=== PATIENT | female | born 1965 | race African-American/Black ===

== ENCOUNTER → 2016-04-21 | Outpatient (CLI) | payer OTHER ==
--- NOTE | 2016-04-21 16:31 | WOMENS IMAGING REPORT ---
EXAM DESCRIPTION: BILAT SCREENING MAMMO W/CAD COMPLETED DATE/TIME: 04/21/2016 12:20 pm REASON FOR STUDY: Z12.31, ROUTINE SCREENING MAMMO Z12.31 ENCNTR SCREEN MAMMOGRAM FOR MALIGNANT NEOP LASM OF ABDIAZIZ COMPARISON: 2009 to 2015 TECHNIQUE: Standard craniocaudal and mediolateral oblique views of each breast recorded using [employer] l acquisition. LIMITATIONS: None. FINDINGS: No masses, calcifications or architectural distortion. No areas of suspicion. Read with the assistance of CAD. .[facility] - R2 Cenova Version 1.3 .[facility] - R2 Cenova Version 1.3 .[facility] Imaging - R2 Cenova Version 2.4 .[facility] - R2 Cenova Version 2.4 .[facility] - R2 Rug Receiving Clerk Version 9.2 BREAST DENSITY: c. The breasts are heterogeneously dense, which may obscure small masses. BIRAD: 1 NEGATIVE RECOMMENDATION: ROUTINE SCREENING COMMENT: PATIENT NOTIFIED BY LETTER. The [employer] recommends an annual screening mammogram for women aged 40 years or over. Each patient will receive a reminder prior to the anniversary date of her mammogram. The [employer] (ACR) has developed recommendations for screening MRI of the breast s in certain patient populations, to be used in conjunction with mammography. Breast MRI surveillanc e may be appropriate for women with more than 20% lifetime risk of developing breast cancer as deter mined by genetic testing, significant family history of the disease, or history of mantle radiation f or Hodgkins Disease. ACR Practice Guidelines 2008. TECHNICAL DOCUMENTATION: FINDING NUMBER: (1) ASSESSMENT: (1) JOB ID: [id number] [employer]- All Rights Reserved
== END ==
LOC: EDSTATUS 11:51 → WI 11:55
PROVIDERS: ATTEND Physician Assistant
DX: Z12.31 Encounter for screening mammogram for malignant neoplasm of breast (principal)
CPT/HCPCS: 77067; G0202

== ENCOUNTER → 2016-07-07 | Outpatient (CLI) | payer OTHER | LOC: OD 11:50 | PROVIDERS: ATTEND Physician Assistant | DX: M25.531 Pain in right wrist (principal) ==

== ENCOUNTER 2016-08-01 09:50 | Emergency (ER) | payer OTHER ==
--- NOTE | 2016-08-01 10:53 | ER Document Report ---
ED GI/ - General Chief Complaint: Low Back Pain Stated Complaint: LOWER BACK PAIN Time Seen by Provider: 08/01/16 10:15 Mode of Arrival: Ambulatory Information source: Patient Notes: 51-year-old female presents to ED for complain of bilateral lower back pain 2 worse in the flank. She states she has urgency frequency and pressure with urination. Patient has a history of blood pressure cholesterol prediabetic and anxiety. She also has a history of a renal cyst on the right. TRAVEL OUTSIDE OF THE [place] IN LAST 30 DAYS: No - HPI Patient complains to provider of: Flank pain, Other - Urinary frequency urgency and pressure Onset: Other - 2 days Timing/Duration: Gradual Quality of pain: Pressure Severity at maximum: Moderate Severity in ED: Moderate Pain Level: 4 Location: Left flank, Right flank Vaginal bleeding (Compared to normal period): None Menstrual period history: Post-menopausal Associated symptoms: Urinary frequency, Urinary urgency Exacerbated by: Movement Relieved by: Denies Similar symptoms previously: Yes Recently seen / treated by doctor: No - Related Data Allergies/Adverse Reactions: No Known Allergies Allergy (Verified 01/15/14 08:42) Past Medical History - General Information source: Patient - Social History Smoking Status: Current Every Day Smoker Cigarette use (# per day): Yes - half pack a day Chew tobacco use (# tins/day): No Smoking Education Provided: Yes - less than 2 minutes Frequency of alcohol use: Social Drug Abuse: None Occupation: home health Lives with: Family Family History: Reviewed & Not Pertinent Patient has suicidal ideation: No Patient has homicidal ideation: No - Past Medical History Cardiac Medical History: Reports: Hx Hypercholesterolemia, Hx Hypertension - on meds Pulmonary Medical History: Reports: None EENT Medical History: Reports: None Neurological Medical History: Reports: None Endocrine Medical History: Reports: Hx Diabetes Mellitus Type 2 - Prediabetic Renal/ Medical History: Reports: Hx Ectopic Malignancy Medical History: Reports: None GI Medical History: Reports: Hx Gastroesophageal Reflux Disease Musculoskeltal Medical History: Reports Hx Arthritis - BACK/SHOULDER AT TIMES Skin Medical History: Reports None Psychiatric Medical History: Reports: Hx Anxiety Traumatic Medical History: Reports: None Infectious Medical History: Denies: Hx Hepatitis Past Surgical History: Reports: Hx Cholecystectomy, Hx Dilation and Curettage, Hx Gynecologic Surgery - Removal of ectopic , Hx Tubal Ligation, Other - We will of a groin cyst - Immunizations Hx Diphtheria, Pertussis, Tetanus Vaccination: Yes Hx Pneumococcal Vaccination: 12/30/12 Review of Systems - Review of Systems Constitutional: No symptoms reported EENT: No symptoms reported Cardiovascular: No symptoms reported Respiratory: No symptoms reported Gastrointestinal: No symptoms reported Genitourinary: Frequency, Flank pain, Urgency, Other - Pressure Female Genitourinary: No symptoms reported Musculoskeletal: No symptoms reported Skin: No symptoms reported Hematologic/Lymphatic: No symptoms reported Neurological/Psychological: No symptoms reported Physical Exam - Vital signs Vitals: Temp Pulse Resp BP Pulse Ox 98.8 F 93 15 128/81 H 100 08/01/16 09:52 08/01/16 09:52 08/01/16 09:52 08/01/16 09:52 08/01/16 09:52 Interpretation: Normal - General General appearance: Appears well, Alert - HEENT Head: Normocephalic, Atraumatic Eyes: Normal Pupils: PERRL - Respiratory Respiratory status: No respiratory distress Chest status: Nontender Breath sounds: Normal Chest palpation: Normal - Cardiovascular Rhythm: Regular Heart sounds: Normal auscultation Murmur: No - Abdominal Inspection: Normal Distension: No distension Bowel sounds: Normal Tenderness: Nontender Organomegaly: No organomegaly - Back Back: Normal, Nontender - Extremities General upper extremity: Normal inspection, Nontender, Normal color, Normal ROM , Normal temperature General lower extremity: Normal inspection, Nontender, Normal color, Normal ROM , Normal temperature, Normal weight bearing. No: Lesli's sign - Neurological Neuro grossly intact: Yes Cognition: Normal Orientation: AAOx4 Stas Coma Scale Eye Opening: Spontaneous [employer] Coma Scale Verbal: Oriented Stas Coma Scale Motor: Obeys Commands Stas Coma Scale Total: 15 Speech: Normal Motor strength normal: LUE, RUE, LLE, RLE Sensory: Normal - Psychological Associated symptoms: Normal affect, Normal mood - Skin Skin Temperature: Warm Skin Moisture: Dry Skin Color: Normal Course - Vital Signs Vital signs: Temp Pulse Resp BP Pulse Ox 98.8 F 93 15 128/81 H 100 08/01/16 09:52 08/01/16 09:52 08/01/16 09:52 08/01/16 09:52 08/01/16 09:52 - Laboratory Laboratory results interpreted by me: 08/01/16 10:43 Urine Glucose (UA) >=500 H Urine Blood MODERATE H Discharge - Discharge Clinical Impression: Flank pain UTI (urinary tract infection) Qualifiers: Urinary tract infection type: site unspecified Hematuria presence: with hematuria Qualified Code(s): N39.0 - Urinary tract infection, site not specified Condition: Stable Disposition: HOME, SELF-CARE Instructions: Use of Vauq-Ryd-Ilqesxk Ibuprofen ([facility]) Additional Instructions: Flank Pain We weren't able to prove an exact cause for your flank pain. Pain in the flank can be caused by a muscle strain or spasm. Sometimes a kidney stone causes pain, but can't be found on our tests. Infection in the kidney should be evident on a urine test. Early shingles can occasionally cause flank pain, without the rash that proves the diagnosis. On rare occasions, disease of the pancreas, aorta, spleen, or colon can create pain in the flank. At this time, there's no evidence of a dangerous condition, and it seems safe for you to be at home. If the pain goes away and does not come back, no further testing will be needed. If pain persists, or becomes more severe, we may need to repeat some tests or order additional new testing. Blood in the urine, urgency to urinate frequently, and pain that radiates to the groin can indicate a kidney stone. Fever may mean that the pain is due to infection, either of the kidney or the colon (diverticulitis). If your pain is early shingles, you should develop an eruption of blisters in the painful area within a few days. Call the doctor or return if you have pain that is spreading or becoming more severe, pain that does not resolve with time, fever, or any other new symptoms. URINARY TRACT INFECTION: Your evaluation indicates that you have a urinary tract infection. This is due to germs growing in the bladder. This is a common problem. This infection usually responds quickly to antibiotics. Your antibiotic should be taken exactly as prescribed. Drink plenty of fluids -- three to four quarts a day. Occasionally, a bladder anesthetic will be prescribed to help stop the feeling of urgency until the antibiotic has a chance to clear the infection. This may cause your urine to be dark orange. Certain urine infections require a culture. If the doctor obtained a culture, the results will be back in two days. You should call to see if a change in treatment is needed. A repeat urinalysis after you finish treatment is often recommended. The physician will let you know if further testing is required. Call the doctor if you develop fever, chills, flank pain, inability to urinate, or blood in the urine. TRIMETHOPRIM-SULFA: You have been given a prescription for trimethoprim-sulfa (TMS, Septra, Bactrim). This is a combination antibiotic of the sulfa class, often used for urinary tract infections, middle ear infections, bronchitis, shigella intestinal infection, and Pneumocystis pneumonia. TMS is usually well-tolerated. Occasional side effects include nausea and decreased appetite. Septra is not recommended for infants less than two months of age. Do not take this medication if you have experienced severe side effects or allergy to sulfa medicine. You should stop this medicine at once and contact your physician if you develop any rash, joint pain, shortness of breath, bruising, or jaundice ( yellow color in the skin), or if you develop any other new or unusual symptoms. FOLLOW-UP CARE: If you have been referred to a physician for follow-up care, call the physician s office for an appointment as you were instructed or within the next two days. If you experience worsening or a significant change in your symptoms, notify the physician immediately or return to the Emergency Department at any time for re-evaluation. Prescriptions: Sulfamethoxazole/Trimethoprim [Bactrim Ds Tablet] 1 each PO BID #14 tablet Forms: Elevated Blood Pressure, Smoking Cessation Education, Return to Work Referrals: LEXA LOVE MD [Primary Care Provider] - Follow up as needed
[2016-08-01 11:10] LABS: APPEARANCE,URINE SLIGHTLY-CLOUDY; BILIRUBIN,URINE NEGATIVE (NEGATIVE); GLUCOSE, URINE >=500 mg/dL (NEGATIVE); KETONES,URINE NEGATIVE (NEGATIVE); LEUKOCYTE ESTERASE,URINE NEGATIVE (NEGATIVE); NITRITE,URINE NEGATIVE (NEGATIVE); PROTEIN,URINE NEGATIVE (NEGATIVE); URINE SPECIFIC GRAVITY 1.013; UROBILINOGEN,URINE NEGATIVE mg/dL (<2.0)
[2016-08-01] MEDS ORDERED: SULFAMETHOXAZOLE/TRIMETHOPRIM 800-160 MG TABLET PO ONE (12:29)
[2016-08-01 15:37] VITALS: BP 108/62
== END 2016-08-01 12:45 | disposition home or self-care (01) ==
LOC: ER 09:50
DX: N39.0 Urinary tract infection, site not specified (principal); R31.9 Hematuria, unspecified; M54.5 Low back pain; R35.0 Frequency of micturition; R39.15 Urgency of urination; I10 Essential (primary) hypertension; F17.210 Nicotine dependence, cigarettes, uncomplicated; Z71.6 Tobacco abuse counseling
CPT/HCPCS: 81001; 82962; 87086; 99283

== ENCOUNTER → 2016-08-05 | Outpatient (CLI) | payer OTHER | LOC: RAD 11:41 | PROVIDERS: ATTEND Family Medicine | DX: M54.9 Dorsalgia, unspecified (principal); M48.06 Spinal stenosis, lumbar region | CPT/HCPCS: 72148 ==

== ENCOUNTER → 2017-01-28 | Outpatient (CLI) | payer OTHER ==
[2017-01-28 14:57] LABS: ABSOLUTE BASOPHILS # (AUTO) 0.1 10^3/uL (0.0-0.2); ABSOLUTE EOSINOPHILS # (AUTO) 0.1 10^3/uL (0.0-0.6); ABSOLUTE LYMPHOCYTES (AUTO) 4.1 10^3/uL (0.5-4.7); ABSOLUTE MONOCYTES (AUTO) 0.7 10^3/uL (0.1-1.4); ABSOLUTE NEUT (AUTO) 3.6 10^3/uL (1.7-8.2); EOSINOPHILS % (AUTO) 0.9 % (0-6); HEMATOCRIT 44.5 % (36.0-47.0); HEMOGLOBIN 15.2 g/dL (12.0-15.5); HGB HCT DIFFERENCE 1.1; LYMPHOCYTES % (AUTO) 47.9 % (13-45); MEAN CORPUSCULAR HEMOGLOBIN 30.6 pg (27.0-33.4); MEAN CORPUSCULAR HGB CONC 34.2 g/dL (32.0-36.0); MEAN CORPUSCULAR VOLUME 89 fl (80-97); MONOCYTES % (AUTO) 7.9 % (3-13); RED BLOOD COUNT 4.98 10^6/uL (3.72-5.28); RED CELL DISTRIBUTION WIDTH 14.2 % (11.5-14.0); SEGMENTED NEUTROPHILS % (AUTO) 42.3 % (42-78); WHITE BLOOD COUNT 8.6 10^3/uL (4.0-10.5)
[2017-01-28 15:30] LABS: ALANINE AMINOTRANSFERASE 20 U/L (9-52); ALBUMIN 4.7 g/dL (3.5-5.0); ALKALINE PHOSPHATASE 74 U/L (38-126); ANION GAP 15 (5-19); ASPARTATE AMINO TRANSFERASE 22 U/L (14-36); BILIRUBIN,DIRECT 0.4 mg/dL (0.0-0.4); BILIRUBIN,TOTAL 0.4 mg/dL (0.2-1.3); BLOOD UREA NITROGEN 16 mg/dL (7-20); CALCIUM 9.9 mg/dL (8.4-10.2); CARBON DIOXIDE 23 mmol/L (22-30); CHLORIDE 104 mmol/L (98-107); CREATININE RESULT 0.78 mg/dL (0.52-1.25); GLUCOSE 89 mg/dL (75-110); POTASSIUM 4.2 mmol/L (3.6-5.0); SODIUM 141.6 mmol/L (137-145); TOTAL PROTEIN 7.8 g/dL (6.3-8.2)
== END ==
LOC: OD 13:22
PROVIDERS: ATTEND Specialist
DX: R10.9 Unspecified abdominal pain (principal)
CPT/HCPCS: 36415; 80053; 85025

== ENCOUNTER 2017-02-24 08:25 | Day surgery (SDC) | payer OTHER ==
--- NOTE | 2017-02-22 14:46 | HISTORY AND PHYSICAL E ---
History and Physical NAME: CUBA CHRISTIANSON : 1965 AGE: 51Y ADMITTED: 02/24/2017 ROOM: The patient has history of gastritis. Presented 02/08/2014. There was rapid transit of barium through small bowel. She did have large diverticula in the second and third portion of the duodenum, multiple diverticula in the terminal ileum, cecum. Few diverticula were seen in the mid transverse colon. PAST MEDICAL HISTORY: The patient has small bowel fissures, diverticulosis. She did have cholecystectomy. Ultrasound shows the following. Her uterus has nodular appearance which may indicate intramural fibroid. She does have some collection of debris, left posterior margin of the uterine. She had degenerative uterine fibroid. Difficulty with visualization of the vagina on ultrasound. She needed endovaginal ultrasound for further evaluation. CEA is 5, elevated CEA. Upper scope shows gastritis and diverticulum in the duodenum. She did have hyperplastic polyp in her rectum, diverticulosis. The patient has reflux, abdominal pain. Plan is for upper endoscopy. The patient is being followed by the following. The patient does have hypertension. She sees TANGELA Morfin. The patient presented at this time for upper endoscopy. She is being seen by Dr. Genny Ledesma. EXAM: Alert, oriented. Temperature is 97, blood pressure 110/70, height 61 inches, weight 111 pounds. HEAD, EYES, EARS, NOSE AND THROAT: Normal. Abdomen soft. Heart normal sounds. Lungs are clear. Abdomen soft. CONCLUSION: Abdominal pain, diverticulum. MEDICATIONS: 1. Nexium. Dictation ends here DICTATING PHYSICIAN: TIKI GALICIA M.D. [id number] PHY#: [id number] ID: [id number] JOB#: [id number] ACCT: [id number] cc:TIKI GALICIA M.D. >
--- NOTE | 2017-02-23 11:13 | HISTORY AND PHYSICAL E ---
History and Physical NAME: CUBA CHRISTIANSON : 1965 AGE: 51Y ADMITTED: 02/24/2017 ROOM: REASON FOR ADMISSION: Upper endoscopy. CHIEF COMPLAINT: Reflux, abdominal pain. HISTORY OF PRESENT ILLNESS: The patient presented at this time regarding upper endoscopy. She did have diverticulum of the duodenum. PAST MEDICAL HISTORY: 1. Diverticulum. 2. Hyperplastic polyp. 3. Hyperlipidemia. 4. Hypertension. 5. Acute lymphadenitis. 6. Chronic gastritis; negative Helicobacter pylori. 7. Constipation. 8. Reflux. SURGERIES: Cholecystectomy. MEDICATIONS: 1. Nexium. 2. Micardis. 3. Aspirin. SOCIAL HISTORY: . Smokes. Drinks rarely. FAMILY HISTORY: Mom has esophageal disease, reflux. Her dad had CA of the prostate. Mom had CA of the esophagus. REVIEW OF SYSTEMS: CARDIAC: Hypertension, high cholesterol, tachyarrhythmias. GASTROINTESTINAL: Constipation. PHYSICAL EXAMINATION: GENERAL: Pleasant, alert, oriented. VITAL SIGNS: Temp is 98, blood pressure 130/80, afebrile. HEAD, EYES, EARS, NOSE, THROAT: Normal. ABDOMEN: Soft. NEUROLOGIC: Negative. LABORATORY DATA: She does have hemoglobin 13, hematocrit 39. PLAN: The patient is scheduled for upper endoscopy on 02/24. The patient is being seen by Dr. Ledesma and Nikki Hooper. DICTATING PHYSICIAN: TIKI GALICIA M.D. [id number] PHY#: [id number] ID: [id number] JOB#: [id number] ACCT: [id number] cc:TIKI GALICIA M.D. >
[2017-02-24] MEDS ORDERED: NALOXONE HCL INJ/PF 0.4 MG/1 ML SDV ONE (09:00)
[2017-02-24] MEDS ORDERED: GLYCOPYRROLATE INJ 0.4 MG/2 ML VIAL ONE (09:00)
[2017-02-24] MEDS ORDERED: ONDANSETRON HCL INJ/PF 4 MG/2 ML SDV ONE (09:00)
[2017-02-24] MEDS ORDERED: FENTANYL CITRATE INJ/PF 100 MCG/2 ML AMPUL ONE (09:01)
[2017-02-24] MEDS ORDERED: FLUMAZENIL INJ 0.5 MG/5 ML VIAL ONE (09:01)
[2017-02-24] MEDS ORDERED: MIDAZOLAM 2 MG/2 ML INJ ONE (09:01)
[2017-02-24] MEDS ORDERED: EPINEPHRINE INJ 1 MG/10 ML DISP.SYRIN ONE (09:01)
[2017-02-24] MEDS: MIDAZOLAM 2 MG/2 ML INJ ONE ×3 (09:24→09:30)
[2017-02-24] MEDS: FENTANYL CITRATE INJ/PF 100 MCG/2 ML AMPUL ONE ×2 (09:26→09:32)
[2017-02-24 10:56] LABS: ALANINE AMINOTRANSFERASE 27 U/L (9-52); ALBUMIN 3.9 g/dL (3.5-5.0); ALKALINE PHOSPHATASE 55 U/L (38-126); AMYLASE 78 U/L (30-110); ANION GAP 10 (5-19); ASPARTATE AMINO TRANSFERASE 17 U/L (14-36); BILIRUBIN,DIRECT 0.4 mg/dL (0.0-0.4); BILIRUBIN,TOTAL 0.5 mg/dL (0.2-1.3); BLOOD UREA NITROGEN 16 mg/dL (7-20); CALCIUM 9.2 mg/dL (8.4-10.2); CARBON DIOXIDE 24 mmol/L (22-30); CHLORIDE 104 mmol/L (98-107); CREATININE RESULT 0.68 mg/dL (0.52-1.25); GLUCOSE 125 mg/dL (75-110); LIPASE 242.7 U/L (23-300); POTASSIUM 3.9 mmol/L (3.6-5.0); TOTAL PROTEIN 6.6 g/dL (6.3-8.2)
[2017-02-24 10:59] VITALS: BP 127/82
[2017-02-24 11:27] LABS: CARCINOEMBRYONIC ANTIGEN 4.4 ng/mL (<3.0)
[2017-02-24 11:47] LABS: ABSOLUTE BASOPHILS # (AUTO) 0.1 10^3/uL (0.0-0.2); ABSOLUTE EOSINOPHILS # (AUTO) 0.1 10^3/uL (0.0-0.6); ABSOLUTE LYMPHOCYTES (AUTO) 3.1 10^3/uL (0.5-4.7); ABSOLUTE MONOCYTES (AUTO) 0.8 10^3/uL (0.1-1.4); ABSOLUTE NEUT (AUTO) 4.7 10^3/uL (1.7-8.2); BASOPHILS % (AUTO) 0.7 % (0-2); EOSINOPHILS % (AUTO) 0.6 % (0-6); HEMATOCRIT 41.6 % (36.0-47.0); HEMOGLOBIN 14.4 g/dL (12.0-15.5); HGB HCT DIFFERENCE 1.6; LYMPHOCYTES % (AUTO) 36.3 % (13-45); MEAN CORPUSCULAR HEMOGLOBIN 30.5 pg (27.0-33.4); MEAN CORPUSCULAR HGB CONC 34.6 g/dL (32.0-36.0); MEAN CORPUSCULAR VOLUME 88 fl (80-97); MONOCYTES % (AUTO) 8.7 % (3-13); RED BLOOD COUNT 4.71 10^6/uL (3.72-5.28); RED CELL DISTRIBUTION WIDTH 14.4 % (11.5-14.0); SEGMENTED NEUTROPHILS % (AUTO) 53.7 % (42-78); WHITE BLOOD COUNT 8.7 10^3/uL (4.0-10.5)
--- NOTE | 2017-02-24 14:25 | DISCHARGE SUMMARY E ---
Discharge Summary NAME: CUBA CHRISTIANSON : 1965 AGE: 51Y ADMITTED: 02/24/2017 DISCHARGED: 02/24/2017 HOSPITAL COURSE: The patient is a 51-year-old female presented with abdominal pain. Today's upper endoscopy shows no ulcers. No malignancy. Deformity in the duodenal bulb. Descending duodenum with nodularity and hyperplastic benign looking polyps and mild esophagitis, mild gastritis. DISCHARGE PLAN: Lab studies. Consider a small bowel series. Awaiting lab studies. Consider a small bowel series with detailed evaluation of contrast, small bowel series for further evaluation of the duodenum. Consider followup upper endoscopy for further evaluation and biopsy to be done in the OR with anesthesia standby. Conscious sedation was difficult. FINAL DIAGNOSES: Deformity in duodenal bulb, duodenitis, abdominal pain. DICTATING PHYSICIAN: TIKI GALICIA M.D. [id number] PHY#: [id number] ID: [id number] JOB#: [id number] ACCT: [id number] cc:TIKI GALICIA M.D., SWETANG M.D. >
--- NOTE | 2017-02-24 14:26 | OPERATIVE REPORT E ---
Operative Report NAME: CUBA CHRISTIANSON : 1965 AGE: 51Y DATE OF SURGERY: 02/24/2017 ROOM: PREOPERATIVE DIAGNOSES: Abdominal pain and reflux. POSTOPERATIVE DIAGNOSES: Patient does have moderate duodenitis, multiple hyperplastic benign looking sessile polyps in the duodenum. PROCEDURE: 1. Esophagoscopy. 2. Gastroscopy. 3. Duodenoscopy. SURGEON: TIKI GALICIA M.D. ANESTHESIA: Patient had 4 Versed and 50 fentanyl. Difficult to sedate. Next endoscopy, she needs to be done in the OR with propofol. TISSUE REMOVED OR ALTERED: None. DESCRIPTION OF PROCEDURE: Baby scope passed under guided vision. No difficulties. Esophagoscopy junction at 40. Mild esophagitis. Gastroscopy: Mild gastritis. Duodenoscopy: Some deformity in the duodenal bulb and descending duodenum with multiple nodularity and hyperplastic benign looking polyps. CONCLUSION: Duodenitis with some deformity in the duodenal bulb and mild esophagitis and mild duodenitis. PLAN: We will consider small bowel series to include the duodenal bulb. We will obtain a CA19-9 to rule out pancreatic lesion, CEA and CBC. DICTATING PHYSICIAN: TIKI GALICIA M.D. [id number] PHY#: [id number] ID: [id number] JOB#: [id number] ACCT: [id number] cc:TIKI GALICIA M.D., SWETANG M.D. >
== END 2017-02-24 11:08 | disposition home or self-care (01) ==
LOC: END 08:25
PROVIDERS: ATTEND Specialist
PROC: 0DJ08ZZ Inspection of Upper Intestinal Tract, Via Natural or Artificial Opening Endoscopic (ICD-10-PCS; principal; 2017-02-24 09:00)
DX: K29.80 Duodenitis without bleeding (principal); K31.7 Polyp of stomach and duodenum; K29.70 Gastritis, unspecified, without bleeding; K20.9 Esophagitis, unspecified; I10 Essential (primary) hypertension; E78.5 Hyperlipidemia, unspecified; K21.9 Gastro-esophageal reflux disease without esophagitis; Z79.82 Long term (current) use of aspirin; Z79.899 Other long term (current) drug therapy; Z90.49 Acquired absence of other specified parts of digestive tract; F17.200 Nicotine dependence, unspecified, uncomplicated
CPT/HCPCS: 43235; 36415; 86301; 82962; 82150; 82378; 82941; 83690; 85025; 80053; J2250; J3010; J2405; J0171; J2310; J3490

== ENCOUNTER → 2017-03-29 | Outpatient (CLI) | payer OTHER ==
--- NOTE | 2017-03-29 15:08 | RADIOLOGY REPORT (SQ) ---
EXAM DESCRIPTION: CT CHEST WITH COMPLETED DATE/TIME: 03/29/2017 11:11 am REASON FOR STUDY: COUGH (R05), WHEEZING (R06.2) R05 COUGH R06.2 WHEEZING COMPARISON: Two-view chest 04/29/2014 TECHNIQUE: CT scan of the chest performed using helical scanning technique with dynamic intravenous contrast injection. Images reviewed with lung, soft tissue and bone windows. Reconstructed coronal and sagittal MPR images reviewed. All images stored on PACS. All CT scanners at this facility use dose modulation, iterative reconstruction, and/or weight based d osing when appropriate to reduce radiation dose to as low as reasonably achievable (ALARA). [facility]: Dose Right [facility]: CareDose [facility]: Dose Right [facility]: Teradose 4D [facility]: its learning CONTRAST TYPE AND DOSE: contrast/concentration: Isovue 370.00 mg/ml; Total Contrast Delivered: 80.0 ml; Total Saline Delivered: 55.0 ml RENAL FUNCTION: Creatinine 0.88 RADIATION DOSE: CT Rad equipment meets quality standard of care and radiation dose reduction techniq ues were employed. CTDIvol: 4.0 mGy. DLP: 150 mGy-cm. . LIMITATIONS: None. FINDINGS: LUNGS AND PLEURA: No opacities, nodules, masses. No pneumothorax. No effusions. HILAR AND MEDIASTINAL STRUCTURES: No identified masses or abnormal nodes. HEART AND VASCULAR STRUCTURES: No aneurysm or dissection. No central pulmonary emboli. No pericardi al effusion. HARDWARE: None in the chest. UPPER ABDOMEN: Post cholecystectomy. Right upper pole renal cortical thinning, likely from remote pr ior infection THYROID AND OTHER SOFT TISSUES: No masses. No adenopathy. BONES: No significant finding. OTHER: No other significant finding. IMPRESSION: NORMAL CT OF THE CHEST WITH IV CONTRAST. TECHNICAL DOCUMENTATION: JOB ID: [id number] Quality ID # [id number]: Final reports with documentation of one or more dose reduction techniques (e.g., Au tomated exposure control, adjustment of the mA and/or kV according to patient size, use of iterative reconstruction technique) 2010 [employer]- All Rights Reserved
== END ==
LOC: RAD 10:21
PROVIDERS: ATTEND Physician Assistant
DX: R05 Cough (principal); R06.2 Wheezing
CPT/HCPCS: 71260

== ENCOUNTER → 2017-05-25 | Outpatient (CLI) | payer OTHER ==
--- NOTE | 2017-05-25 15:56 | WOMENS IMAGING REPORT ---
EXAM DESCRIPTION: BILAT SCREENING MAMMO W/CAD COMPLETED DATE/TIME: 05/25/2017 2:37 pm REASON FOR STUDY: ROUTINE BILATERAL SCREENING;Z12.31 Z12.31 ENCNTR SCREEN MAMMOGRAM FOR MALIGNANT N EOPLASM OF ABDIAZIZ COMPARISON: 04/21/2016 and 04/10/2015. TECHNIQUE: Standard craniocaudal and mediolateral oblique views of each breast recorded using [employer]ita l acquisition. LIMITATIONS: None. FINDINGS: No masses, calcifications or architectural distortion. No areas of suspicion. Read with the assistance of CAD. .[facility] - R2 Cenova Version 1.3 .[facility] Imaging - R2 Cenova Version 1.3 .[facility] - R2 Cenova Version 2.4 .[facility] - R2 Cenova Version 2.4 .[facility] - R2 Attending Urologist Version 9.2 IMPRESSION: NORMAL MAMMOGRAM. BIRADS 1. BREAST DENSITY: c. The breasts are heterogeneously dense, which may obscure small masses. BIRAD: 1 NEGATIVE RECOMMENDATION: ROUTINE SCREENING COMMENT: The patient has been notified of the results by letter per SA requirements. Additional no tification policies are in place for contacting patient with suspicious or incomplete findings. Quality ID #[id number]: The [place] [employer] recommends an annual screening mammogram for women aged 40 years or over. This facility utilizes a reminder system to ensure that all patients receive reminder letters, and/or direct phone calls for appointments. This includes reminders for routine scr eening mammograms, diagnostic mammograms, or other Breast Imaging Interventions when appropriate. Th is patient will be placed in the appropriate reminder system. The [place] [employer] (ACR) has developed recommendations for screening MRI of the breast s in certain patient populations, to be used in conjunction with mammography. Breast MRI surveillanc e may be appropriate for women with more than 20% lifetime risk of developing breast cancer as deter mined by genetic testing, significant family history of the disease, or history of mantle radiation f or Hodgkins Disease. ACR Practice Guidelines 2008. TECHNICAL DOCUMENTATION: FINDING NUMBER: (1) ASSESSMENT: (1) JOB ID: [id number] [employer]- All Rights Reserved Reading location - IP/workstation name: [facility]
== END ==
LOC: WI 14:18
PROVIDERS: ATTEND Physician Assistant
DX: Z12.31 Encounter for screening mammogram for malignant neoplasm of breast (principal)
CPT/HCPCS: 77067

== ENCOUNTER 2017-07-19 20:10 | Emergency (ER) | payer OTHER ==
[2017-07-19 20:37] VITALS: BP 155/82
[2017-07-19] MEDS ORDERED: ASPIRIN 81 MG TABLET, CHEWABLE PO ONE (20:43)
[2017-07-19] MEDS ORDERED: NITROGLYCERIN 0.4 MG/TAB 25 TAB/BOTTLE SL PRN (20:51)
--- NOTE | 2017-07-19 20:51 | ER Document Report ---
ED Medical Screen (RME) - General Chief Complaint: Chest Pain Stated Complaint: CHEST TIGHTNESS,BLOOD PRESSURE PROBLEM Time Seen by Provider: 07/19/17 20:47 Notes: 52-year-old female who presents with intermittent left-sided chest pressure is not associated with movement or exertion. Patient of Dr. Dang Shortness of breath or vomiting. PE: NAD. RRR. Lungs CTAB. I have greeted and performed a rapid initial assessment of this patient. A comprehensive ED assessment and evaluation of the patient, analysis of test results and completion of the medical decision making process will be conducted by additional ED providers. TRAVEL OUTSIDE OF THE [place] IN LAST 30 DAYS: No - Related Data Allergies/Adverse Reactions: No Known Allergies Allergy (Verified 07/19/17 20:23) Past Medical History - Social History Chew tobacco use (# tins/day): No Frequency of alcohol use: None Drug Abuse: None - Past Medical History Cardiac Medical History: Reports: Hx Coronary Artery Disease - HIGH CHOLESTEROL , Hx Hypercholesterolemia, Hx Hypertension - on meds Denies: Hx Heart Attack Pulmonary Medical History: Denies: Hx Asthma, Hx Bronchitis, Hx COPD, Hx Pneumonia Neurological Medical History: Denies: Hx Cerebrovascular Accident, Hx Seizures Endocrine Medical History: Reports: Hx Diabetes Mellitus Type 2 - Prediabetic Renal/ Medical History: Reports: Hx Ectopic . Denies: Hx Peritoneal Dialysis GI Medical History: Reports: Hx Gastroesophageal Reflux Disease. Denies: Hx Hepatitis, Hx Hiatal Hernia, Hx Ulcer Musculoskeltal Medical History: Reports Hx Arthritis - BACK/BILATERAL SHOULDER AT TIMES Psychiatric Medical History: Reports: Hx Anxiety Infectious Medical History: Denies: Hx Hepatitis Past Surgical History: Reports: Hx Cholecystectomy, Hx Dilation and Curettage, Hx Gynecologic Surgery - Removal of ectopic , Hx Tubal Ligation, Other - We will of a groin cyst. Denies: Hx Hysterectomy, Hx Mastectomy, Hx Open Heart Surgery, Hx Pacemaker - Immunizations Hx Diphtheria, Pertussis, Tetanus Vaccination: Yes Influenza Administration Date for 12/2016 - 05/2017 Season: 12/19/16 Physical Exam - Vital signs Vitals: Temp Pulse Resp BP Pulse Ox 98.3 F 79 18 155/82 H 100 07/19/17 20:34 07/19/17 20:34 07/19/17 20:34 07/19/17 20:34 07/19/17 20:34 Course - Vital Signs Vital signs: Temp Pulse Resp BP Pulse Ox 98.3 F 79 18 155/82 H 100 07/19/17 20:34 07/19/17 20:34 07/19/17 20:34 07/19/17 20:34 07/19/17 20:34
--- NOTE | 2017-07-19 22:04 | RADIOLOGY REPORT (SQ) ---
EXAM DESCRIPTION: CHEST SINGLE VIEW COMPLETED DATE/TIME: 07/19/2017 9:55 pm REASON FOR STUDY: chest pain COMPARISON: 04/29/2014 EXAM PARAMETERS: NUMBER OF VIEWS: One view. TECHNIQUE: Single frontal radiographic view of the chest acquired. RADIATION DOSE: NA LIMITATIONS: None. FINDINGS: LUNGS AND PLEURA: No opacities, masses or pneumothorax. No pleural effusion. MEDIASTINUM AND HILAR STRUCTURES: No masses. Contour normal. HEART AND VASCULAR STRUCTURES: Heart normal in size. Normal vasculature. BONES: No acute findings. HARDWARE: None in the chest. OTHER: No other significant finding. IMPRESSION: NO ACUTE RADIOGRAPHIC FINDING IN THE CHEST. TECHNICAL DOCUMENTATION: JOB ID: [id number] [employer]- All Rights Reserved Reading location - IP/workstation name: [facility]
--- NOTE | 2017-07-19 22:32 | EKG REPORT ---
SEVERITY:- NORMAL ECG - SINUS RHYTHM : Confirmed by: Ana Perry 19-Jul-2017 22:32:08
--- NOTE | 2017-07-27 17:56 | ER Document Report ---
ED General - General Chief Complaint: Chest Pain Stated Complaint: CHEST TIGHTNESS,BLOOD PRESSURE PROBLEM Time Seen by Provider: 07/19/17 20:47 Notes: 52-year-old female who presents with intermittent left-sided chest pressure that is not associated with movement or exertion. Patient of Dr. Dang Denies shortness of breath or vomiting. TRAVEL OUTSIDE OF THE [place] IN LAST 30 DAYS: No - Related Data Allergies/Adverse Reactions: No Known Allergies Allergy (Verified 07/19/17 20:23) Past Medical History - General Information source: Patient - Social History Smoking Status: Current Every Day Smoker Chew tobacco use (# tins/day): No Frequency of alcohol use: None Drug Abuse: None Family History: Reviewed & Not Pertinent Patient has suicidal ideation: No Patient has homicidal ideation: No - Past Medical History Cardiac Medical History: Reports: Hx Coronary Artery Disease - HIGH CHOLESTEROL , Hx Hypercholesterolemia, Hx Hypertension - on meds Denies: Hx Heart Attack Pulmonary Medical History: Denies: Hx Asthma, Hx Bronchitis, Hx COPD, Hx Pneumonia Neurological Medical History: Denies: Hx Cerebrovascular Accident, Hx Seizures Endocrine Medical History: Reports: Hx Diabetes Mellitus Type 2 - Prediabetic Renal/ Medical History: Reports: Hx Ectopic . Denies: Hx Peritoneal Dialysis GI Medical History: Reports: Hx Gastroesophageal Reflux Disease. Denies: Hx Hepatitis, Hx Hiatal Hernia, Hx Ulcer Musculoskeltal Medical History: Reports Hx Arthritis - BACK/BILATERAL SHOULDER AT TIMES Psychiatric Medical History: Reports: Hx Anxiety Infectious Medical History: Denies: Hx Hepatitis Past Surgical History: Reports: Hx Cholecystectomy, Hx Dilation and Curettage, Hx Gynecologic Surgery - Removal of ectopic , Hx Tubal Ligation, Other - We will of a groin cyst. Denies: Hx Hysterectomy, Hx Mastectomy, Hx Open Heart Surgery, Hx Pacemaker - Immunizations Hx Diphtheria, Pertussis, Tetanus Vaccination: Yes Hx Pneumococcal Vaccination: 12/30/12 Review of Systems - Review of Systems Notes: REVIEW OF SYSTEMS: CONSTITUTIONAL: -fevers, -chills EENT: -eye pain, -difficulty swallowing, -nasal congestion CARDIOVASCULAR: +chest pain, -syncope. RESPIRATORY: -cough, -SOB GASTROINTESTINAL: -abdominal pain, -nausea, -vomiting, -diarrhea GENITOURINARY: -dysuria, -hematuria MUSCULOSKELETAL: -back pain, -neck pain SKIN: -rash or skin lesions. HEMATOLOGIC: -easy bruising or bleeding. LYMPHATIC: -swollen, enlarged glands. NEUROLOGICAL: -altered mental status or loss of consciousness, -headache, - neurologic symptoms PSYCHIATRIC: -anxiety, -depression. ALL OTHER SYSTEMS REVIEWED AND NEGATIVE. Physical Exam - Vital signs Vitals: Temp Pulse Resp BP Pulse Ox 98.3 F 79 18 155/82 H 100 07/19/17 20:34 07/19/17 20:34 07/19/17 20:34 07/19/17 20:34 07/19/17 20:34 - Notes Notes: PHYSICAL EXAMINATION: GENERAL: Well-appearing, well-nourished and in no acute distress. HEAD: Atraumatic, normocephalic. EYES: Pupils equal round and reactive to light, extraocular movements intact, sclera anicteric, conjunctiva are normal. ENT: nares patent, oropharynx clear without exudates. Moist mucous membranes. NECK: Normal range of motion, supple without lymphadenopathy LUNGS: Breath sounds clear to auscultation bilaterally and equal. No wheezes rales or rhonchi. HEART: Regular rate and rhythm without murmurs ABDOMEN: Soft, nontender, normoactive bowel sounds. No guarding, no rebound. No masses appreciated. EXTREMITIES: Normal range of motion, no pitting or edema. No cyanosis. NEUROLOGICAL: Cranial nerves grossly intact. Normal speech, normal gait. Normal sensory and motor exams. PSYCH: Normal mood, normal affect. SKIN: Warm, Dry, normal turgor, no rashes or lesions noted. Course - Re-evaluation Re-evalutation: Patient eloped after my evaluation in [facility] She left before the risks of leaving without proper evaluation could be explained to her. She was called multiple times by the RN, who could not locate her. Unsure of her reason for elopement. - Vital Signs Vital signs: Temp Pulse Resp BP Pulse Ox 98.3 F 79 18 155/82 H 100 07/19/17 20:34 07/19/17 20:34 07/19/17 20:34 07/19/17 20:34 07/19/17 20:34 Discharge - Discharge Clinical Impression: Chest pain Qualifiers: Chest pain type: unspecified Qualified Code(s): R07.9 - Chest pain, unspecified Condition: Stable Disposition: ELOPED
== END 2017-07-20 00:12 | disposition left against medical advice (07) ==
LOC: ER 20:10
DX: R07.89 Other chest pain (principal); I25.10 Atherosclerotic heart disease of native coronary artery without angina pectoris; I10 Essential (primary) hypertension; Z53.20 Procedure and treatment not carried out because of patient's decision for unspecified reasons
CPT/HCPCS: 71045; 93005; 93010; 99281

== ENCOUNTER → 2017-07-21 | Outpatient (CLI) | payer OTHER ==
--- NOTE | 2017-07-21 10:31 | RADIOLOGY REPORT (SQ) ---
EXAM DESCRIPTION: MRI HEAD WITHOUT; MRA HEAD WITHOUT COMPLETED DATE/TIME: 07/21/2017 10:04 am REASON FOR STUDY: TRANSIENT CEREBRAL ISCHEMIA (G45.9) G45.9 TRANSIENT CEREBRAL ISCHEMIC ATTACK, UNS PECIFIED COMPARISON: None. TECHNIQUE: Multiplanar imaging includes non-contrasted T1, T2, FLAIR, and diffusion with ADC map seq uences. Images stored on PACS. [place] MRA exam was performed with 3D [id number] acquisition. Source data and maximum intensity projected images were reviewed. LIMITATIONS: None. FINDINGS: ANATOMY: No developmental anomalies. Normal vascular flow voids. Pituitary fossa normal. CSF SPACES: Normal in size and contour. No hemorrhage. CEREBRUM: Sulci and gyri normal in size and contour. Normal white matter signal on FLAIR imaging. No evidence of hemorrhage, mass, or extraaxial fluid collection. POSTERIOR FOSSA: No signal alteration. No hemorrhage. No edema, masses or mass effect. Internal gautam tory canals, cerebello-pontine angles, mastoids normal. DIFFUSION IMAGING: Negative for acute or sub-acute infarction. ORBITS: No masses. Globes normal. PARANASAL SINUSES: No fluid levels. Mucosa normal. [place] MRA: A 3.5 mm ophthalmic aneurysm is present off the anterior aspect left internal c arotid artery, best shown on axial source data image 95/164, and re- projected images series 302, veto ge 22/37. No other [place] aneurysm. No arteriovenous malformation. No [place] sign ificant vascular stenosis. IMPRESSION: Unremarkable MRI of the brain without contrast. [place] MRA exam demonstrates incidental finding of a 3.5 mm left ophthalmic region cerebral aneurysm. EVIDENCE OF ACUTE STROKE: NO. TECHNICAL DOCUMENTATION: JOB ID: [id number] All Rights Reserved Reading location - IP/workstation name: [email or web address]
--- NOTE | 2017-07-21 10:31 | RADIOLOGY REPORT (SQ) ---
EXAM DESCRIPTION: MRI HEAD WITHOUT; MRA HEAD WITHOUT COMPLETED DATE/TIME: 07/21/2017 10:04 am REASON FOR STUDY: TRANSIENT CEREBRAL ISCHEMIA (G45.9) G45.9 TRANSIENT CEREBRAL ISCHEMIC ATTACK, UNS PECIFIED COMPARISON: None. TECHNIQUE: Multiplanar imaging includes non-contrasted T1, T2, FLAIR, and diffusion with ADC map seq uences. Images stored on PACS. [place] MRA exam was performed with 3D [id number] acquisition. Source data and maximum intensity projected images were reviewed. LIMITATIONS: None. FINDINGS: ANATOMY: No developmental anomalies. Normal vascular flow voids. Pituitary fossa normal. CSF SPACES: Normal in size and contour. No hemorrhage. CEREBRUM: Sulci and gyri normal in size and contour. Normal white matter signal on FLAIR imaging. No evidence of hemorrhage, mass, or extraaxial fluid collection. POSTERIOR FOSSA: No signal alteration. No hemorrhage. No edema, masses or mass effect. Internal gautam tory canals, cerebello-pontine angles, mastoids normal. DIFFUSION IMAGING: Negative for acute or sub-acute infarction. ORBITS: No masses. Globes normal. PARANASAL SINUSES: No fluid levels. Mucosa normal. [place] MRA: A 3.5 mm ophthalmic aneurysm is present off the anterior aspect left internal c arotid artery, best shown on axial source data image 95/164, and re- projected images series 302, veto ge 22/37. No other [place] aneurysm. No arteriovenous malformation. No [place] sign ificant vascular stenosis. IMPRESSION: Unremarkable MRI of the brain without contrast. [place] MRA exam demonstrates incidental finding of a 3.5 mm left ophthalmic region cerebral aneurysm. EVIDENCE OF ACUTE STROKE: NO. TECHNICAL DOCUMENTATION: JOB ID: [id number]- All Rights Reserved Reading location - IP/workstation name: [email or web address]
== END ==
LOC: RAD 09:08
PROVIDERS: ATTEND Family Medicine
DX: G45.9 Transient cerebral ischemic attack, unspecified (principal)
CPT/HCPCS: 70544; 70551

== ENCOUNTER → 2017-09-05 | Outpatient (CLI) | payer OTHER ==
[2017-09-05 14:16] LABS: FOLATE 13.9 ng/mL (>2.76)
== END ==
LOC: OD 12:22
PROVIDERS: ATTEND Specialist
DX: G62.9 Polyneuropathy, unspecified (principal)
CPT/HCPCS: 36415; 82607; 82746

== ENCOUNTER 2017-10-03 19:51 | Emergency (ER) | payer OTHER ==
--- NOTE | 2017-10-03 20:15 | ER Document Report ---
ED Medical Screen (RME) - General Chief Complaint: High Blood Pressure Stated Complaint: BLOOD PRESSURE ISSUES Time Seen by Provider: 10/03/17 20:05 Notes: RAPID MEDICAL EVALUATION DISCLOSURE I have seen this patient as part of a Rapid Medical Evaluation and, if applicable, placed any initially appropriate orders. The patient will be seen and fully evaluated, including a full history and physical exam, by a provider ( in Main ED or Fast Track) when a room becomes available. 52-year-old female H recently diagnosed left carotid aneurysm here with complaints of elevated blood pressure and symptoms of left-sided headache, perioral numbness, and left neck pain. The symptoms started yesterday. She has had some intermittent blurry vision but no shortness of breath chest pain nausea vomiting extremity numbness tingling weakness. She has not had any changes in her Cozaar in the past few weeks. She has not missed any doses recently. She took her Cozaar this morning and at 4 PM she took another half dose since her blood pressure had not improved. She reports that her normal blood pressures are usually 120 systolic. She was recently told about her left carotid aneurysm however there was no intervention performed. EXAM No left neck TTP Cranial nerves grossly intact including sensation Strength 5/5 with intact sensation all extremities TRAVEL OUTSIDE OF THE [place].S. IN LAST 30 DAYS: No - Related Data Allergies/Adverse Reactions: No Known Allergies Allergy (Verified 07/19/17 20:23) Past Medical History - Social History Frequency of alcohol use: Occasional Drug Abuse: None - Past Medical History Cardiac Medical History: Reports: Hx Coronary Artery Disease - HIGH CHOLESTEROL , Hx Hypercholesterolemia, Hx Hypertension - on meds Denies: Hx Heart Attack Pulmonary Medical History: Denies: Hx Asthma, Hx Bronchitis, Hx COPD, Hx Pneumonia Neurological Medical History: Denies: Hx Cerebrovascular Accident, Hx Seizures Endocrine Medical History: Reports: Hx Diabetes Mellitus Type 2 - Prediabetic Renal/ Medical History: Reports: Hx Ectopic . Denies: Hx Peritoneal Dialysis GI Medical History: Reports: Hx Gastroesophageal Reflux Disease. Denies: Hx Hepatitis, Hx Hiatal Hernia, Hx Ulcer Musculoskeltal Medical History: Reports Hx Arthritis - BACK/BILATERAL SHOULDER AT TIMES Psychiatric Medical History: Reports: Hx Anxiety Infectious Medical History: Denies: Hx Hepatitis Past Surgical History: Reports: Hx Cholecystectomy, Hx Dilation and Curettage, Hx Gynecologic Surgery - Removal of ectopic , Hx Tubal Ligation, Other - We will of a groin cyst. Denies: Hx Hysterectomy, Hx Mastectomy, Hx Open Heart Surgery, Hx Pacemaker - Immunizations Hx Diphtheria, Pertussis, Tetanus Vaccination: Yes Influenza Administration Date for 12/2016 - 05/2017 Season: 12/19/16 Physical Exam - Vital signs Vitals: Temp Pulse Resp BP Pulse Ox 99.0 F 91 17 151/87 H 96 10/03/17 20:02 10/03/17 20:02 10/03/17 20:02 10/03/17 20:02 10/03/17 20:02 Course - Vital Signs Vital signs: Temp Pulse Resp BP Pulse Ox 99.0 F 91 17 151/87 H 96 10/03/17 20:02 10/03/17 20:02 10/03/17 20:02 10/03/17 20:02 10/03/17 20:02 Doctor's Discharge - Discharge Referrals: DEEPALI HERRON MD [Primary Care Provider] - Follow up as needed
[2017-10-03 20:46] LABS: ABSOLUTE BASOPHILS # (AUTO) 0.1 10^3/uL (0.0-0.2); ABSOLUTE EOSINOPHILS # (AUTO) 0.1 10^3/uL (0.0-0.6); ABSOLUTE LYMPHOCYTES (AUTO) 4.4 10^3/uL (0.5-4.7); ABSOLUTE MONOCYTES (AUTO) 0.8 10^3/uL (0.1-1.4); ABSOLUTE NEUT (AUTO) 5.6 10^3/uL (1.7-8.2); BASOPHILS % (AUTO) 0.8 % (0-2); EOSINOPHILS % (AUTO) 0.9 % (0-6); HEMATOCRIT 41.4 % (36.0-47.0); LYMPHOCYTES % (AUTO) 39.7 % (13-45); MEAN CORPUSCULAR HEMOGLOBIN 29.9 pg (27.0-33.4); MEAN CORPUSCULAR HGB CONC 33.9 g/dL (32.0-36.0); MEAN CORPUSCULAR VOLUME 88 fl (80-97); MONOCYTES % (AUTO) 7.5 % (3-13); PLATELET COUNT 256 10^3/uL (150-450); RED BLOOD COUNT 4.69 10^6/uL (3.72-5.28); RED CELL DISTRIBUTION WIDTH 14.4 % (11.5-14.0); SEGMENTED NEUTROPHILS % (AUTO) 51.1 % (42-78); TOTAL CELLS COUNTED % (AUTO) 100 %
[2017-10-03 21:04] LABS: ANION GAP 11 (5-19); BLOOD UREA NITROGEN 8 mg/dL (7-20); CALCIUM 8.2 mg/dL (8.4-10.2); CARBON DIOXIDE 25 mmol/L (22-30); CHLORIDE 105 mmol/L (98-107); GLUCOSE 79 mg/dL (75-110); SODIUM 140.6 mmol/L (137-145)
[2017-10-03] MEDS ORDERED: POTASSI CL 20 MEQ/50 ML RIDER 20 MEQ/50 ML RTUPB IV ONE (21:11)
[2017-10-03] MEDS ORDERED: POTASSIUM CHLORIDE 10 MEQ CAPSULE.ER PO ONE (21:12)
[2017-10-03] MEDS ORDERED: METOCLOPRAMIDE HCL INJ/PF 10 MG/2 ML SDV IV ONE (21:26)
[2017-10-03] MEDS ORDERED: DIPHENHYDRAMINE HCL 50 MG/ML VIAL IV ONE (21:26)
--- NOTE | 2017-10-03 21:26 | ER Document Report ---
ED General - General Chief Complaint: High Blood Pressure Stated Complaint: BLOOD PRESSURE ISSUES Time Seen by Provider: 10/03/17 20:05 Mode of Arrival: Ambulatory Information source: Patient Notes: 52-year-old female with hypertension, hyperlipidemia, type 2 diabetes, recently diagnosed 3.5 mm left ophthalmic aneurysm presents with complaint of elevated blood pressure, headache, neck pain and domingo-orbital numbness. Patient states headache started yesterday, headache is located on the left side of her head described as an aching pain. Patient has had similar headaches in the past. Patient also complaining of left sided intermittent aching neck pain. She denies any injury. Patient has had prior similar symptoms. Patient takes Cozaar for her hypertension. She states that she has been compliant with this medication. She states her blood pressure usually runs 120s-130 systolic but she became concerned when she had a blood pressure reading at home of 150. TRAVEL OUTSIDE OF THE [place] IN LAST 30 DAYS: No - HPI Onset: Yesterday Onset/Duration: Gradual, Persistent Quality of pain: Achy Severity: Mild Associated symptoms: denies: Fever, Nausea, Vomiting, Weakness Exacerbated by: Denies Relieved by: Denies Similar symptoms previously: Yes Recently seen / treated by doctor: Yes - Related Data Allergies/Adverse Reactions: No Known Allergies Allergy (Verified 07/19/17 20:23) Past Medical History - General Information source: Patient - Social History Smoking Status: Current Every Day Smoker Cigarette use (# per day): Yes - 10 Smoking Education Provided: Yes Frequency of alcohol use: Occasional Drug Abuse: None Lives with: Spouse/Significant other Family History: Reviewed & Not Pertinent Patient has suicidal ideation: No Patient has homicidal ideation: No - Past Medical History Cardiac Medical History: Reports: Hx Coronary Artery Disease - HIGH CHOLESTEROL , Hx Hypercholesterolemia, Hx Hypertension - on meds Denies: Hx Heart Attack Pulmonary Medical History: Denies: Hx Asthma, Hx Bronchitis, Hx COPD, Hx Pneumonia Neurological Medical History: Denies: Hx Cerebrovascular Accident, Hx Seizures Endocrine Medical History: Reports: Hx Diabetes Mellitus Type 2 - Prediabetic Renal/ Medical History: Reports: Hx Ectopic . Denies: Hx Peritoneal Dialysis GI Medical History: Reports: Hx Gastroesophageal Reflux Disease. Denies: Hx Hepatitis, Hx Hiatal Hernia, Hx Ulcer Musculoskeletal Medical History: Reports Hx Arthritis - BACK/BILATERAL SHOULDER AT TIMES Psychiatric Medical History: Reports: Hx Anxiety Infectious Medical History: Denies: Hx Hepatitis Past Surgical History: Reports: Hx Cholecystectomy, Hx Dilation and Curettage, Hx Gynecologic Surgery - Removal of ectopic , Hx Tubal Ligation, Other - We will of a groin cyst. Denies: Hx Hysterectomy, Hx Mastectomy, Hx Open Heart Surgery, Hx Pacemaker - Immunizations Hx Diphtheria, Pertussis, Tetanus Vaccination: Yes Hx Pneumococcal Vaccination: 12/30/12 Review of Systems - Review of Systems Constitutional: denies: Weakness EENT: Blurred vision Cardiovascular: denies: Chest pain, Heart racing, Syncope, Dizziness, Lightheaded Respiratory: denies: Short of breath Gastrointestinal: denies: Abdominal pain, Nausea Genitourinary: denies: Dysuria, Flank pain Female Genitourinary: No symptoms reported Musculoskeletal: Neck pain Neurological/Psychological: Headaches, Numbness - Periorbital paresthesia. denies: Weakness, Gait changes, Lost consciousness, Speech impairment Physical Exam - Vital signs Vitals: Temp Pulse Resp BP Pulse Ox 99.0 F 91 17 151/87 H 96 10/03/17 20:02 10/03/17 20:02 10/03/17 20:02 10/03/17 20:02 10/03/17 20:02 Interpretation: Hypertensive. No: Febrile - Notes Notes: PHYSICAL EXAMINATION: GENERAL: Well-appearing, well-nourished and in no acute distress. HEAD: Atraumatic, normocephalic. EYES: Pupils equal round and reactive to light, extraocular movements intact, conjunctiva are normal. ENT: Nares patent, oropharynx clear without exudates. Moist mucous membranes. NECK: Normal range of motion, supple without lymphadenopathy LUNGS: Breath sounds clear to auscultation bilaterally and equal. No wheezes rales or rhonchi. HEART: Regular rate and rhythm without murmurs ABDOMEN: Soft, nontender, nondistended abdomen. No guarding, no rebound. No masses appreciated. Female : deferred Musculoskeletal: Normal range of motion, no pitting or edema. No cyanosis. NEUROLOGICAL: Cranial nerves grossly intact. Normal speech, normal gait. Normal sensory, motor exams. NIH 0. PSYCH: Normal mood, normal affect. SKIN: Warm, Dry, normal turgor, no rashes or lesions noted. Course - Re-evaluation Re-evalutation: 10/03/17 22:52 Laboratory 10/03/17 10/03/17 20:30 20:30 WBC 11.0 H RBC 4.69 Hgb 14.0 Hct 41.4 MCV 88 MCH 29.9 MCHC 33.9 RDW 14.4 H Plt Count 256 Seg Neutrophils % 51.1 Lymphocytes % 39.7 Monocytes % 7.5 Eosinophils % 0.9 Basophils % 0.8 Absolute Neutrophils 5.6 Absolute Lymphocytes 4.4 Absolute Monocytes 0.8 Absolute Eosinophils 0.1 Absolute Basophils 0.1 Sodium 140.6 Potassium 3.0 L* Chloride 105 Carbon Dioxide 25 Anion Gap 11 BUN 8 Creatinine 0.51 L Est GFR ( Amer) > 60 Est GFR (Non-Af Amer) > 60 Glucose 79 Calcium 8.2 L Neck CTA 10/03/17 20:14 IMPRESSION: NORMAL CTA OF THE EXTRA-CRANIAL CAROTID AND VERTEBRAL ARTERIES. Head CTA 10/03/17 20:16 IMPRESSION: Somewhat limited study. No obvious occlusions. Small aneurysm demonstrated on MRA is is below the resolution of the CTA. 52-year-old female with hypertension, hyperlipidemia, type 2 diabetes, recently diagnosed 3.5 mm left ophthalmic aneurysm presents with complaint of headache, neck pain and domingo-orbital numbness. Patient states headache started yesterday , headache is located on the left side of her head described as an aching pain. Patient has had similar headaches in the past. Patient also complaining of left sided intermittent aching neck pain. She denies any injury. Patient has had prior similar symptoms. Vital signs reviewed upon arrival patient initially hypertensive but this resolved without intervention. She is afebrile. She does not appear toxic or dehydrated. She is in no acute distress. Neuro exam and NIH performed and within normal limits. Previous medical records including recent MRI, MRA were reviewed. CTA of the head and neck were obtained and showed no acute process. Patient did receive Reglan, Benadryl during her ED course. Patient was found to be mildly hypokalemic. This was replenished and patient was discharged with a prescription for 5 days of potassium. This could contribute to the patient's complaint of periorbital numbness. 10/03/17 22:57 Patient reevaluated and reports resolution of her headache. She is sleeping comfortably. Potassium was found to be 3.0 and this was replenished. 10/04/17 20:31 10/04/17 20:32 - Vital Signs Vital signs: Temp Pulse Resp BP Pulse Ox 98.2 F 91 19 115/80 99 10/04/17 01:26 10/03/17 20:02 10/04/17 01:26 10/04/17 01:26 10/04/17 01:26 - Laboratory Result Diagrams: 10/03/17 20:30 10/03/17 20:30 Laboratory results interpreted by me: 10/03/17 10/03/17 20:30 20:30 WBC 11.0 H RDW 14.4 H Potassium 3.0 L* Creatinine 0.51 L Calcium 8.2 L - Diagnostic Test Radiology reviewed: Image reviewed, Reports reviewed Discharge - Discharge Clinical Impression: Neck pain Headache Qualifiers: Headache type: unspecified Headache chronicity pattern: unspecified pattern Intractability: not intractable Qualified Code(s): R51 - Headache Hypertension Qualifiers: Hypertension type: unspecified Qualified Code(s): I10 - Essential (primary) hypertension Condition: Good Disposition: HOME, SELF-CARE Instructions: Headache ([facility]), High Blood Pressure ([facility]), Neck Injury (Cervical Strain) ([facility]), Numbness or Paresthesia ([facility]) Additional Instructions: Please follow-up with your primary care physician as soon as you are able. You do have an elevated blood pressure reading today but no evidence of organ damage. We did find that your potassium was low and this was replenished. You will will be sent home on a potassium supplement to take for the next few days. Prescriptions: Metoclopramide HCl [Reglan 10 mg Tablet] 1 - 2 tab PO ASDIR PRN #10 tablet PRN Reason: Potassium Chloride 20 meq PO DAILY #10 tablet.er Forms: Smoking Cessation Education, Elevated Blood Pressure Referrals: DEEPALI HERRON MD [NO LOCAL MD] - Follow up as needed LEXA LOVE MD [Primary Care Provider] - Follow up as needed
--- NOTE | 2017-10-03 22:26 | RADIOLOGY REPORT (SQ) ---
EXAM DESCRIPTION: CTA NECK COMPLETED DATE/TIME: 10/03/2017 10:06 pm REASON FOR STUDY: HOLT L neck pain, hx L aneurysm; eval aneurysm COMPARISON: None. TECHNIQUE: Axial dynamic scanning technique with dynamic contrast enhancement through the extra-aircraft pneudraulics repairer nial carotid and vertebral arteries. Multiplanar reconstruction. 3-D MIPS and Volume-rendered imag es acquired at the workstation and saved to PACS. Images are reviewed in soft tissue, bone, lung w indows. All CT scanners at this facility use dose modulation, iterative reconstruction, and/or weight based d osing when appropriate to reduce radiation dose to as low as reasonably achievable (ALARA). [facility]: Dose Right [facility]: CareDose [facility]: Dose Right [facility]: Teradose 4D [facility]: [employer] CONTRAST TYPE AND DOSE: contrast/concentration: Isovue 370.00 mg/ml; Total Contrast Delivered: 80.0 ml; Total Saline Delivered: 52.0 ml RENAL FUNCTION: None required. The patient is less than 50 years old. LIMITATIONS: None. FINDINGS: AORTIC ARCH: Normal three-vessel origin. Bilateral subclavian arteries are patent. No d issection. RIGHT CAROTIDS: Patent common, internal and external carotid arteries without suggestion of significa nt stenosis or irregular plaque. No dissection. RIGHT VERTEBRAL: Patent. No dissection. LEFT CAROTIDS: Patent common, internal and external carotid arteries without suggestion of significan t stenosis or irregular plaque. No dissection. LEFT VERTEBRAL: Patent. No dissection. OTHER: No other significant finding. OTHER: 3-D reconstructions confirm findings. IMPRESSION: NORMAL CTA OF THE EXTRA-CRANIAL CAROTID AND VERTEBRAL ARTERIES. COMMENT: Quality ID #[id number]: Measurements of distal internal carotid diameter were used as the denomina tor for stenosis measurement. TECHNICAL DOCUMENTATION: JOB ID: [id number] Quality ID # [id number]: Final reports with documentation of one or more dose reduction techniques (e.g., Au tomated exposure control, adjustment of the mA and/or kV according to patient size, use of iterative reconstruction technique) 2010 [employer]- All Rights Reserved Reading location - IP/workstation name: [email or web address]
--- NOTE | 2017-10-03 22:27 | RADIOLOGY REPORT (SQ) ---
EXAM DESCRIPTION: CTA HEAD COMPLETED DATE/TIME: 10/03/2017 10:06 pm REASON FOR STUDY: HOLT elevated BP COMPARISON: CT of the brain 2008. MRI of the brain 07/21/2017. TECHNIQUE: Post IV contrast scanning, thin section axial imaging through the brain to evaluate the a rterial structures. Source and MIP images are saved and reviewed on PACS. Advanced 3D imaging as volume-rendering, MIPs, SSD performed? yes All CT scanners at this facility use dose modulation, iterative reconstruction, and/or weight based d osing when appropriate to reduce radiation dose to as low as reasonably achievable (ALARA). [facility]: Dose Right [facility]: CareDose [facility]: Dose Right [facility]: Teradose 4D [facility]: [employer] CONTRAST TYPE AND DOSE: Not recorded RENAL FUNCTION: GFR > 60. LIMITATIONS: Poor visualization of the intracranial anatomy. FINDINGS: [place]: The anterior, middle, posterior cerebral arteries are all patent. No ev idence of aneurysm or focal stenosis. POSTERIOR CIRCULATION: The distal vertebral arteries are patent as is the basilar artery. No aneurysm . BRAIN: No gross enhancing lesions as visualized. The superior cerebral hemispheres are not included in the field of view. BONES: Intact as visualized. SINUSES: No fluid or mucosal thickening. OTHER: No other significant finding. IMPRESSION: Somewhat limited study. No obvious occlusions. Small aneurysm demonstrated on MRA is is below the resolution of the CTA. COMMENT: To evaluate the aneurysm, MRA is required. TECHNICAL DOCUMENTATION: JOB ID: [id number] Quality ID # [id number]: Final reports with documentation of one or more dose reduction techniques (e.g., Au tomated exposure control, adjustment of the mA and/or kV according to patient size, use of iterative reconstruction technique) 2010 [employer]- All Rights Reserved Reading location - IP/workstation name: [email or web address]
[2017-10-03] MEDS ORDERED: KETOROLAC TROMETHAMINE INJ/PF 30 MG/1 ML SDV IV ONE (23:02)
[2017-10-04 01:43] VITALS: BP 115/80
== END 2017-10-04 01:51 | disposition home or self-care (01) ==
LOC: ER 19:51
DX: I10 Essential (primary) hypertension (principal); Z79.899 Other long term (current) drug therapy; I72.8 Aneurysm of other specified arteries; E87.6 Hypokalemia; M54.2 Cervicalgia; R51 Headache; H53.8 Other visual disturbances; R20.0 Anesthesia of skin; I25.10 Atherosclerotic heart disease of native coronary artery without angina pectoris; F17.210 Nicotine dependence, cigarettes, uncomplicated
CPT/HCPCS: 99284; 96375; 96365; 96366; 36415; 85025; 80048; 70496; 70498; J1200; J1885; J2765; J3480

== ENCOUNTER 2017-12-21 16:27 | Emergency (ER) | payer OTHER ==
--- NOTE | 2017-12-21 16:55 | ER Document Report ---
ED Medical Screen (RME) - General Chief Complaint: Hand Pain Stated Complaint: WEAKNESS Time Seen by Provider: 12/21/17 16:52 Notes: 52 years old female with a [id number] history of smoking presents today with numbness tingling sensation over both upper extremities almost half way down the forearm all the way to the tip of the fingers as well as below the half a of the thigh all the way to the tip of the toe for the last several weeks to months. She has been taking vitamin B without improvement. She had nerve conduction study done by a neurologist. Denies any pain. On examination-left lower lung rhonchi's were heard TRAVEL OUTSIDE OF THE [place] IN LAST 30 DAYS: No - Related Data Allergies/Adverse Reactions: No Known Allergies Allergy (Verified 12/21/17 16:35) Past Medical History - Social History Chew tobacco use (# tins/day): No Frequency of alcohol use: None Drug Abuse: None - Past Medical History Cardiac Medical History: Reports: Hx Coronary Artery Disease - HIGH CHOLESTEROL , Hx Hypercholesterolemia, Hx Hypertension - on meds Denies: Hx Heart Attack Pulmonary Medical History: Denies: Hx Asthma, Hx Bronchitis, Hx COPD, Hx Pneumonia Neurological Medical History: Denies: Hx Cerebrovascular Accident, Hx Seizures Endocrine Medical History: Reports: Hx Diabetes Mellitus Type 2 - Prediabetic Renal/ Medical History: Reports: Hx Ectopic . Denies: Hx Peritoneal Dialysis GI Medical History: Reports: Hx Gastroesophageal Reflux Disease. Denies: Hx Hepatitis, Hx Hiatal Hernia, Hx Ulcer Musculoskeltal Medical History: Reports Hx Arthritis - BACK/BILATERAL SHOULDER AT TIMES Psychiatric Medical History: Reports: Hx Anxiety Infectious Medical History: Denies: Hx Hepatitis Past Surgical History: Reports: Hx Cholecystectomy, Hx Dilation and Curettage, Hx Gynecologic Surgery - Removal of ectopic , Hx Tubal Ligation, Other - We will of a groin cyst. Denies: Hx Hysterectomy, Hx Mastectomy, Hx Open Heart Surgery, Hx Pacemaker - Immunizations Hx Diphtheria, Pertussis, Tetanus Vaccination: Yes Influenza Administration Date for 12/2016 - 05/2017 Season: 12/19/16 Physical Exam - Vital signs Vitals: Temp Pulse Resp BP Pulse Ox 99.3 F 103 H 16 131/97 H 98 12/21/17 16:36 12/21/17 16:36 12/21/17 16:36 12/21/17 16:36 12/21/17 16:36 Course - Vital Signs Vital signs: Temp Pulse Resp BP Pulse Ox 99.3 F 103 H 16 131/97 H 98 12/21/17 16:36 12/21/17 16:36 12/21/17 16:36 12/21/17 16:36 12/21/17 16:36 Doctor's Discharge - Discharge Referrals: LEXA LOVE MD [Primary Care Provider] - Follow up as needed
--- NOTE | 2017-12-21 17:29 | RADIOLOGY REPORT (SQ) ---
EXAM DESCRIPTION: CHEST 2 VIEWS COMPLETED DATE/TIME: 12/21/2017 5:15 pm REASON FOR STUDY: Left lower lung rhonchi COMPARISON: 07/19/2017 EXAM PARAMETERS: NUMBER OF VIEWS: Two views TECHNIQUE: Digital Frontal and Lateral radiographic views of the chest acquired. RADIATION DOSE: NA LIMITATIONS: none FINDINGS: LUNGS AND PLEURA: No opacities, masses or pneumothorax. No pleural effusion. MEDIASTINUM AND HILAR STRUCTURES: No masses or contour abnormalities. HEART AND VASCULAR STRUCTURES: Heart normal size. No evidence for failure. BONES: No acute findings. HARDWARE: None in the chest. OTHER: No other significant finding. IMPRESSION: NO ACUTE RADIOGRAPHIC FINDING IN THE CHEST. TECHNICAL DOCUMENTATION: JOB ID: [id number] [employer]- All Rights Reserved Reading location - IP/workstation name: [email or web address]
--- NOTE | 2017-12-21 17:31 | RADIOLOGY REPORT (SQ) ---
EXAM DESCRIPTION: CERV SP 4 OR 5 VIEWS COMPLETED DATE/TIME: 12/21/2017 5:15 pm REASON FOR STUDY: Numbness COMPARISON: None. NUMBER OF VIEWS: Five views. TECHNIQUE: AP, lateral, obliques and odontoid radiographic images acquired of the cervical spine. LIMITATIONS: None. FINDINGS: MINERALIZATION: Normal. ALIGNMENT: Anatomic. VERTEBRAE: Vertebral bodies of normal height. DISCS: Mild disc narrowing at C5-6. FORAMINA: No osteophytes or foraminal narrowing. LATERAL AND POSTERIOR ELEMENTS: Facets, lateral masses and spinous processes without significant find ings. HARDWARE: None in the spine. SOFT TISSUES: No masses or calcifications. Lung apices clear. OTHER: No other significant finding. IMPRESSION: Mild degenerative disc changes at C5-6. TECHNICAL DOCUMENTATION: JOB ID: [id number] [employer]- All Rights Reserved Reading location - IP/workstation name: [email or web address]
[2017-12-21 18:04] LABS: ABSOLUTE BASOPHILS # (AUTO) 0.1 10^3/uL (0.0-0.2); ABSOLUTE EOSINOPHILS # (AUTO) 0.1 10^3/uL (0.0-0.6); ABSOLUTE LYMPHOCYTES (AUTO) 4.2 10^3/uL (0.5-4.7); ABSOLUTE NEUT (AUTO) 4.4 10^3/uL (1.7-8.2); EOSINOPHILS % (AUTO) 0.6 % (0-6); HEMATOCRIT 38.8 % (36.0-47.0); HEMOGLOBIN 13.5 g/dL (12.0-15.5); LYMPHOCYTES % (AUTO) 43.1 % (13-45); MEAN CORPUSCULAR HEMOGLOBIN 30.4 pg (27.0-33.4); MEAN CORPUSCULAR HGB CONC 34.7 g/dL (32.0-36.0); MEAN CORPUSCULAR VOLUME 87 fl (80-97); MONOCYTES % (AUTO) 10.1 % (3-13); PLATELET COUNT 268 10^3/uL (150-450); RED BLOOD COUNT 4.43 10^6/uL (3.72-5.28); RED CELL DISTRIBUTION WIDTH 14.5 % (11.5-14.0); SEGMENTED NEUTROPHILS % (AUTO) 45.2 % (42-78); TOTAL CELLS COUNTED % (AUTO) 100 %; WHITE BLOOD COUNT 9.7 10^3/uL (4.0-10.5)
[2017-12-21] MEDS ORDERED: LIDOCAINE 5% (700 MG) TRANSDERMAL ADH..PATCH TP ONE (18:09)
[2017-12-21] MEDS ORDERED: GABAPENTIN 100 MG CAPSULE PO ONE (18:09)
[2017-12-21] MEDS ORDERED: DEXAMETHASONE 4 MG TABLET PO ONE (18:17)
[2017-12-21 18:25] LABS: ALANINE AMINOTRANSFERASE 31 U/L (9-52); ALBUMIN 4.1 g/dL (3.5-5.0); ALKALINE PHOSPHATASE 71 U/L (38-126); ANION GAP 10 (5-19); ASPARTATE AMINO TRANSFERASE 32 U/L (14-36); BILIRUBIN,DIRECT 0.4 mg/dL (0.0-0.4); BILIRUBIN,TOTAL 0.8 mg/dL (0.2-1.3); BLOOD UREA NITROGEN 9 mg/dL (7-20); CALCIUM 7.8 mg/dL (8.4-10.2); CARBON DIOXIDE 29 mmol/L (22-30); CHLORIDE 99 mmol/L (98-107); GLUCOSE 75 mg/dL (75-110); SODIUM 137.8 mmol/L (137-145); TOTAL PROTEIN 6.8 g/dL (6.3-8.2)
[2017-12-21 18:35] LABS: POTASSIUM 2.8 mmol/L (3.6-5.0)
[2017-12-21] MEDS ORDERED: POTASSIUM CHLORIDE 10 MEQ CAPSULE.ER PO ONE (18:44)
[2017-12-21] MEDS ORDERED: MAGNESIUM OXIDE 400 MG TABLET PO ONE (19:20)
--- NOTE | 2017-12-21 19:25 | ER Document Report ---
ED General - General Chief Complaint: Hand Pain Stated Complaint: WEAKNESS Time Seen by Provider: 12/21/17 16:52 TRAVEL OUTSIDE OF THE [place] IN LAST 30 DAYS: No - HPI Patient complains to provider of: Hand numbness bilateral Notes: Patient coming in with bilateral hand numbness ongoing for greater than 3 weeks. Patient states was evaluated by neurologist with nerve conduction studies that were negative. Also states saw PCP diagnosed with low B12 has been receiving B12 injections no improvement of her symptoms. Patient states he does have some cramping as well along with some pain. Patient states she is on blood pressure medication diuretic patient denies any fevers chills nausea vomiting diarrhea denies any trauma. Resting comfortably upon my evaluation distribution of numbness on the brachioradialis side of the forearm along with fingers 2 through 5 thumb is not involved denies any exacerbating or relieving factors - Related Data Allergies/Adverse Reactions: No Known Allergies Allergy (Verified 12/21/17 16:35) Past Medical History - Social History Smoking Status: Current Every Day Smoker Chew tobacco use (# tins/day): No Frequency of alcohol use: None Drug Abuse: None Family History: Reviewed & Not Pertinent Patient has suicidal ideation: No Patient has homicidal ideation: No - Past Medical History Cardiac Medical History: Reports: Hx Coronary Artery Disease - HIGH CHOLESTEROL , Hx Hypercholesterolemia, Hx Hypertension - on meds Denies: Hx Heart Attack Pulmonary Medical History: Denies: Hx Asthma, Hx Bronchitis, Hx COPD, Hx Pneumonia Neurological Medical History: Denies: Hx Cerebrovascular Accident, Hx Seizures Endocrine Medical History: Reports: Hx Diabetes Mellitus Type 2 - Prediabetic Renal/ Medical History: Reports: Hx Ectopic . Denies: Hx Peritoneal Dialysis GI Medical History: Reports: Hx Gastroesophageal Reflux Disease. Denies: Hx Hepatitis, Hx Hiatal Hernia, Hx Ulcer Musculoskeletal Medical History: Reports Hx Arthritis - BACK/BILATERAL SHOULDER AT TIMES Psychiatric Medical History: Reports: Hx Anxiety Infectious Medical History: Denies: Hx Hepatitis Past Surgical History: Reports: Hx Cholecystectomy, Hx Dilation and Curettage, Hx Gynecologic Surgery - Removal of ectopic , Hx Tubal Ligation, Other - We will of a groin cyst. Denies: Hx Hysterectomy, Hx Mastectomy, Hx Open Heart Surgery, Hx Pacemaker - Immunizations Hx Diphtheria, Pertussis, Tetanus Vaccination: Yes Hx Pneumococcal Vaccination: 12/30/12 Review of Systems - Review of Systems Constitutional: No symptoms reported EENT: No symptoms reported Cardiovascular: No symptoms reported Respiratory: No symptoms reported Gastrointestinal: No symptoms reported Genitourinary: No symptoms reported Female Genitourinary: No symptoms reported Musculoskeletal: No symptoms reported Skin: No symptoms reported Hematologic/Lymphatic: No symptoms reported Neurological/Psychological: Numbness -: Yes All other systems reviewed and negative Physical Exam - Vital signs Vitals: Temp Pulse Resp BP Pulse Ox 99.3 F 103 H 16 131/97 H 98 12/21/17 16:36 12/21/17 16:36 12/21/17 16:36 12/21/17 16:36 12/21/17 16:36 Interpretation: Normal - General General appearance: Appears well, Alert - HEENT Head: Normocephalic, Atraumatic Eyes: Normal Pupils: PERRL - Respiratory Respiratory status: No respiratory distress Chest status: Nontender Breath sounds: Normal Chest palpation: Normal - Cardiovascular Rhythm: Regular Heart sounds: Normal auscultation Murmur: No - Abdominal Inspection: Normal Distension: No distension Bowel sounds: Normal Tenderness: Nontender Organomegaly: No organomegaly - Back Back: Normal, Nontender - Extremities General upper extremity: Normal inspection, Nontender, Normal color, Normal ROM , Normal temperature General lower extremity: Normal inspection, Nontender, Normal color, Normal ROM , Normal temperature, Normal weight bearing. No: Lesli's sign - Neurological Neuro grossly intact: Yes Cognition: Normal Orientation: AAOx4 Stas Coma Scale Eye Opening: Spontaneous Stas Coma Scale Verbal: Oriented [place] Coma Scale Motor: Obeys Commands Stas Coma Scale Total: 15 Speech: Normal Motor strength normal: LUE, RUE, LLE, RLE Additional motor exam normals: Equal skate maker Sensory: Normal - Psychological Associated symptoms: Normal affect, Normal mood - Skin Skin Temperature: Warm Skin Moisture: Dry Skin Color: Normal Course - Re-evaluation Re-evalutation: 12/21/17 22:57 Laboratory studies show hypokalemia with hypomagnesemia this will replace orally. Patient again states that she is on a diuretic possibly hydrochlorothiazide. Discussed with PCP requested the patient follow-up in his office tomorrow for medication readjustment. Patient agrees with this plan educated patient about eating at least one banana harp with potassium containing foods once a day will supplement the patient with magnesium also educated patient about the findings of the neck x-ray this is possible no other etiologies that would need to be further evaluated if her symptoms continue after electrolyte imbalance has been fixed and continue symptoms possibly MRI. - Vital Signs Vital signs: Temp Pulse Resp BP Pulse Ox 99.3 F 96 16 122/87 H 99 12/21/17 16:36 12/21/17 19:00 12/21/17 19:00 12/21/17 19:00 12/21/17 19:00 - Laboratory Result Diagrams: 12/21/17 17:40 12/21/17 17:40 Laboratory results interpreted by me: 12/21/17 12/21/17 12/21/17 17:40 17:40 17:40 RDW 14.5 H Potassium 2.8 L* Calcium 7.8 L Magnesium 0.6 L* Discharge - Discharge Clinical Impression: Numbness and tingling in both hands, Hypokalemia, Hypomagnesemia, Degenerative disc disease C5-C6 Condition: Good Disposition: HOME, SELF-CARE Instructions: Hypokalemia ([facility]), Numbness or Paresthesia ([facility]) Additional Instructions: Laboratory evaluation today shows that you have hypomagnesemia and hypokalemia more likely related to your hypertensive medication. Recommend that she continue to eat 1 banana a day to help elevate her potassium. Please take the magnesium as prescribed. I discussed her case with your primary care physician Dr. Love recommends that she call his office tomorrow and follow-up for adjustment of your medications. Return to ER symptoms worsen Prescriptions: Gabapentin [Neurontin 100 mg Capsule] 100 mg PO Q12 #60 capsule Magnesium Oxide [Mag-Ox 400 mg Tablet] 400 mg PO DAILY #30 tablet Forms: Return to Work Referrals: LEXA LOVE MD [Primary Care Provider] - Follow up tomorrow
[2017-12-21 19:58] VITALS: BP 122/87
== END 2017-12-21 19:45 | disposition home or self-care (01) ==
LOC: ER 16:27
DX: E87.6 Hypokalemia (principal); E83.42 Hypomagnesemia; M50.322 Other cervical disc degeneration at C5-C6 level; R20.0 Anesthesia of skin; R20.2 Paresthesia of skin; R25.2 Cramp and spasm; F17.200 Nicotine dependence, unspecified, uncomplicated; I25.10 Atherosclerotic heart disease of native coronary artery without angina pectoris; I10 Essential (primary) hypertension; Z79.899 Other long term (current) drug therapy
CPT/HCPCS: 36415; 71046; 72050; 80053; 83735; 85025; 99284

== ENCOUNTER 2017-12-22 02:42 | Emergency (ER) | payer OTHER ==
[2017-12-22] MEDS ORDERED: ACETAMINOPHEN 325 MG TABLET PO ONE (03:34)
--- NOTE | 2017-12-22 03:38 | ER Document Report ---
ED General - General Chief Complaint: Numbness Stated Complaint: NUMBNESS IN LEGS Time Seen by Provider: 12/22/17 03:26 Notes: Patient is a 52-year-old female that comes emergency department for chief complaint of muscle tightness and cramping, she states she feels it across her arms, down her chest, and into her thighs and legs with a tingling sensation in her legs. She was seen for similar symptoms yesterday, diagnosed with hypomagnesemia and hypokalemia, placed on oral magnesium and told to increase potassium in her diet, received oral doses yesterday. She has not been able to fill her prescriptions yet. She also has had an ongoing workup with neurology for the past month approximately for paresthesias. She is on Micardis HCTZ, Toprol for tachycardia, has a history of hyperlipidemia and smoking. Patient also reports intermittent diarrhea for "a while". Denies abdominal pain, fevers /chills. TRAVEL OUTSIDE OF THE [place] IN LAST 30 DAYS: No - Related Data Allergies/Adverse Reactions: No Known Allergies Allergy (Verified 12/22/17 02:45) Past Medical History - General Information source: Patient - Social History Smoking Status: Never Smoker Frequency of alcohol use: None Drug Abuse: None Lives with: Family Family History: Reviewed & Not Pertinent - Past Medical History Cardiac Medical History: Reports: Hx Coronary Artery Disease - HIGH CHOLESTEROL , Hx Hypercholesterolemia, Hx Hypertension - on meds Denies: Hx Heart Attack Pulmonary Medical History: Denies: Hx Asthma, Hx Bronchitis, Hx COPD, Hx Pneumonia Neurological Medical History: Denies: Hx Cerebrovascular Accident, Hx Seizures Endocrine Medical History: Reports: Hx Diabetes Mellitus Type 2 - Prediabetic Renal/ Medical History: Reports: Hx Ectopic . Denies: Hx Peritoneal Dialysis GI Medical History: Reports: Hx Gastroesophageal Reflux Disease. Denies: Hx Hepatitis, Hx Hiatal Hernia, Hx Ulcer Musculoskeletal Medical History: Reports Hx Arthritis - BACK/BILATERAL SHOULDER AT TIMES Psychiatric Medical History: Reports: Hx Anxiety Infectious Medical History: Denies: Hx Hepatitis Past Surgical History: Reports: Hx Cholecystectomy, Hx Dilation and Curettage, Hx Gynecologic Surgery - Removal of ectopic , Hx Tubal Ligation, Other - We will of a groin cyst. Denies: Hx Hysterectomy, Hx Mastectomy, Hx Open Heart Surgery, Hx Pacemaker - Immunizations Hx Diphtheria, Pertussis, Tetanus Vaccination: Yes Hx Pneumococcal Vaccination: 12/30/12 Review of Systems - Review of Systems Constitutional: No symptoms reported EENT: No symptoms reported Cardiovascular: See HPI Respiratory: No symptoms reported Gastrointestinal: No symptoms reported Genitourinary: No symptoms reported Female Genitourinary: No symptoms reported Musculoskeletal: See HPI Skin: No symptoms reported Hematologic/Lymphatic: No symptoms reported Neurological/Psychological: No symptoms reported Physical Exam - Vital signs Vitals: Resp Pulse Ox 16 96 12/22/17 03:01 12/22/17 03:01 - Notes Notes: GENERAL: Alert, interacts well. No acute distress. HEAD: Normocephalic, atraumatic. EYES: Pupils equal, round, and reactive to light. Extraocular movements intact. ENT: Oral mucosa moist, tongue midline. NECK: Full range of motion. Supple. Trachea midline. LUNGS: Clear to auscultation bilaterally, no wheezes, rales, or rhonchi. No respiratory distress. HEART: Mild tachycardia, normal rhythm, no murmur ABDOMEN: Soft, non-tender. Non-distended. Bowel sounds present in all 4 quadrants. EXTREMITIES: Moves all 4 extremities spontaneously. No edema, normal radial and dorsalis pedis pulses bilaterally. No cyanosis. BACK: no cervical, thoracic, lumbar midline tenderness. No saddle anesthesia, normal distal neurovascular exam. NEUROLOGICAL: Alert and oriented x3. Normal speech. [cranial nerves II through XII grossly intact]. PSYCH: Normal affect, normal mood. SKIN: Warm, dry, normal turgor. No rashes or lesions noted. Course - Re-evaluation Re-evalutation: Patient reporting of muscle cramping and paresthesias almost everywhere but mainly in her upper extremities, chest, down to her abdomen, down to her thighs , and down her legs. When asked to be more specific she states it is worse in her thighs. No swelling or edema. No fasciculations or noted tenderness on exam. CBC unremarkable, chemistry shows much improved potassium (patient states she was eating leafy greens and bananas throughout the day). Magnesium is still very low. Troponin is not elevated. Chest x-ray unremarkable. Patient is mildly tachycardic but she is very well-appearing on exam. Patient was given IV magnesium, 2 g dose. This was slowly over 2 hours. I reevaluated her afterwards, she states her symptoms are completely gone. She is very satisfied with this, she is asking to leave. She states she will take her prescribed magnesium from yesterday and follow-up with her primary care. She is noted to be mildly tachycardic, she states she missed her metoprolol succinate dose, 50 mg, requested be given now and requests to go home. She has more this at home. Discussed return precautions. Stable at time of discharge. - Vital Signs Vital signs: Temp Pulse Resp BP Pulse Ox 98.1 F 20 107/61 99 12/22/17 06:25 12/22/17 06:00 12/22/17 06:00 12/22/17 06:00 - Laboratory Result Diagrams: 12/22/17 03:20 12/22/17 03:20 Laboratory results interpreted by me: 12/22/17 12/22/17 03:20 03:20 RDW 14.3 H Seg Neutrophils % 79.8 H Monocytes % 1.1 L Carbon Dioxide 21 L Glucose 150 H Calcium 8.2 L Magnesium 0.6 L* Discharge - Discharge Clinical Impression: Leg cramps, Numbness and tingling in both hands, Hypomagnesemia Condition: Stable Disposition: HOME, SELF-CARE Additional Instructions: Your magnesium has begun replacement today, continue your magnesium prescription at home, follow-up with your primary care closely for additional evaluation and management. Return if you worsen including severe pain, fever, passing out, difficulty breathing, or any other concerning or worsening symptoms. Referrals: LEXA LOVE MD [Primary Care Provider] - Follow up as needed
[2017-12-22 03:48] LABS: ABSOLUTE LYMPHOCYTES (AUTO) 1.8 10^3/uL (0.5-4.7); ABSOLUTE MONOCYTES (AUTO) 0.1 10^3/uL (0.1-1.4); ABSOLUTE NEUT (AUTO) 7.7 10^3/uL (1.7-8.2); BASOPHILS % (AUTO) 0.4 % (0-2); HEMATOCRIT 39.8 % (36.0-47.0); HEMOGLOBIN 13.8 g/dL (12.0-15.5); LYMPHOCYTES % (AUTO) 18.7 % (13-45); MEAN CORPUSCULAR HEMOGLOBIN 30.5 pg (27.0-33.4); MEAN CORPUSCULAR HGB CONC 34.7 g/dL (32.0-36.0); MEAN CORPUSCULAR VOLUME 88 fl (80-97); MONOCYTES % (AUTO) 1.1 % (3-13); PLATELET COUNT 282 10^3/uL (150-450); RED BLOOD COUNT 4.54 10^6/uL (3.72-5.28); RED CELL DISTRIBUTION WIDTH 14.3 % (11.5-14.0); SEGMENTED NEUTROPHILS % (AUTO) 79.8 % (42-78); TOTAL CELLS COUNTED % (AUTO) 100 %; WHITE BLOOD COUNT 9.7 10^3/uL (4.0-10.5)
[2017-12-22 03:55] LABS: ALANINE AMINOTRANSFERASE 35 U/L (9-52); ALBUMIN 4.1 g/dL (3.5-5.0); ALKALINE PHOSPHATASE 76 U/L (38-126); ANION GAP 15 (5-19); ASPARTATE AMINO TRANSFERASE 32 U/L (14-36); BILIRUBIN,DIRECT 0.4 mg/dL (0.0-0.4); BILIRUBIN,TOTAL 0.6 mg/dL (0.2-1.3); BLOOD UREA NITROGEN 10 mg/dL (7-20); CALCIUM 8.2 mg/dL (8.4-10.2); CARBON DIOXIDE 21 mmol/L (22-30); CHLORIDE 104 mmol/L (98-107); GLUCOSE 150 mg/dL (75-110); SODIUM 139.8 mmol/L (137-145)
[2017-12-22 04:07] LABS: POTASSIUM 3.8 mmol/L (3.6-5.0)
[2017-12-22] MEDS: MAGNESIUM SULFATE/D5W 1 GM/100 ML RTUPB IV SCH ×2 (04:27→05:25)
--- NOTE | 2017-12-22 04:58 | RADIOLOGY REPORT (SQ) ---
EXAM DESCRIPTION: X-ray single view chest. CLINICAL HISTORY: 52 years Female, chest tightness COMPARISON: Prior two-view chest performed on 12/21/2017. TECHNIQUE: Single portable view of the chest performed on 12/22/2017 at 4:11 AM FINDINGS: The lungs are well expanded and are clear. There is no evidence of a pneumothorax. The cardiac silhouette is normal in size and configuration. The mediastinal contours are normal. No acute osseous abnormality is identified. No focal soft tissue abnormalities are seen. Lines and tubes: None. IMPRESSION: No evidence of acute intrathoracic disease.
[2017-12-22 06:10] VITALS: BP 107/61
[2017-12-22] MEDS ORDERED: METOPROLOL SUCCINATE 50 MG TAB.SR.24H PO ONE (06:19)
[2017-12-22] MEDS ORDERED: METOPROLOL TARTRATE 50 MG TABLET PO ONE (06:19)
--- NOTE | 2017-12-22 08:57 | EKG REPORT ---
SEVERITY:- ABNORMAL ECG - SINUS TACHYCARDIA PROMINENT P WAVES, NONDIAGNOSTIC LEFT AXIS DEVIATION BORDERLINE INFERIOR Q WAVES : Confirmed by: Ana Perry 22-Dec-2017 08:56:13
== END 2017-12-22 06:26 | disposition home or self-care (01) ==
LOC: ER 02:42
DX: R25.2 Cramp and spasm (principal); R20.0 Anesthesia of skin; M79.10 Myalgia, unspecified site; E83.42 Hypomagnesemia; I25.10 Atherosclerotic heart disease of native coronary artery without angina pectoris; I10 Essential (primary) hypertension; E78.00 Pure hypercholesterolemia, unspecified; Z90.49 Acquired absence of other specified parts of digestive tract; Z98.51 Tubal ligation status
CPT/HCPCS: 93005; 99284; 96365; 96366; 36415; 83735; 85025; 80053; 84484; 71045; 93010; J3475

== ENCOUNTER 2018-05-07 15:41 | Emergency (ER) | payer OTHER ==
[2018-05-07 17:24] LABS: ALANINE AMINOTRANSFERASE 55 U/L (9-52); ALBUMIN 3.9 g/dL (3.5-5.0); ALKALINE PHOSPHATASE 48 U/L (38-126); ANION GAP 11 (5-19); ASPARTATE AMINO TRANSFERASE 95 U/L (14-36); BILIRUBIN,DIRECT 0.2 mg/dL (0.0-0.4); BILIRUBIN,TOTAL 0.3 mg/dL (0.2-1.3); BLOOD UREA NITROGEN 15 mg/dL (7-20); CALCIUM 7.9 mg/dL (8.4-10.2); CARBON DIOXIDE 26 mmol/L (22-30); CHLORIDE 102 mmol/L (98-107); GLUCOSE 101 mg/dL (75-110); POTASSIUM 3.4 mmol/L (3.6-5.0); SODIUM 139.4 mmol/L (137-145); TOTAL PROTEIN 6.1 g/dL (6.3-8.2)
[2018-05-07] MEDS ORDERED: MAGNESIUM OXIDE 400 MG TABLET PO ONE (17:41)
--- NOTE | 2018-05-07 18:03 | EKG REPORT ---
SEVERITY:- ABNORMAL ECG - SINUS RHYTHM CONSIDER ANTEROSEPTAL INFARCT : Confirmed by: Priti Macias MD 07-May-2018 18:02:56
[2018-05-07] MEDS ORDERED: POTASSIUM CHLORIDE 10 MEQ CAPSULE.ER PO ONE (18:04)
[2018-05-07] MEDS ORDERED: CALCIUM CARBONATE 500 MG TABLET PO ONE ×2 (18:38→19:00)
[2018-05-07 19:26] VITALS: BP 148/88
--- NOTE | 2018-05-07 21:03 | ER Document Report ---
Entered by ALY HERRERA SCRIBE 05/07/18 [id number] Acting as scribe for:DANIELLE NEVILLE DO ED General - General Chief Complaint: Numbness Stated Complaint: TINGLING IN HANDS/FEET Time Seen by Provider: 05/07/18 16:12 Primary Care Provider: LEXA LOVE MD [Primary Care Provider] - Follow up in 1 week Mode of Arrival: Ambulatory Information source: Patient Notes: Patient is a 52 year old female presenting to the emergency department complain ing of tingling in the bilateral hands and feet and around her mouth onset 3-4 days ago. Patient states she has had similar symptoms in the past that was attributed to magnesium/potassium deficiency. She does take magnesium by mouth at home. No cause was ever found for the magnesium deficiency, the potassium deficiency had been attributed to her taking Lasix in the past. She states her symptoms occasionally feel as if they are going to cause the her hands and feet to cramp up. TRAVEL OUTSIDE OF THE [place] IN LAST 30 DAYS: No - Related Data Allergies/Adverse Reactions: No Known Allergies Allergy (Verified 05/07/18 16:13) Past Medical History - General Information source: Patient - Social History Smoking Status: Current Every Day Smoker Cigarette use (# per day): Yes Chew tobacco use (# tins/day): No Smoking Education Provided: No Frequency of alcohol use: Occasional Drug Abuse: None Family History: Reviewed & Not Pertinent Patient has suicidal ideation: No Patient has homicidal ideation: No - Past Medical History Cardiac Medical History: Reports: Hx Coronary Artery Disease - HIGH CHOLESTEROL, Hx Hypercholesterolemia, Hx Hypertension - on meds Endocrine Medical History: Reports: Hx Diabetes Mellitus Type 2 - Prediabetic Renal/ Medical History: Reports: Hx Ectopic GI Medical History: Reports: Hx Gastroesophageal Reflux Disease Musculoskeletal Medical History: Reports Hx Arthritis - BACK/BILATERAL SHOULDER AT TIMES Psychiatric Medical History: Reports: Hx Anxiety Past Surgical History: Reports: Hx Cholecystectomy, Hx Dilation and Curettage, Hx Gynecologic Surgery - Removal of ectopic , Hx Orthopedic Surgery - r shoulder, Hx Tubal Ligation, Other - We will of a groin cyst - Immunizations Hx Diphtheria, Pertussis, Tetanus Vaccination: Yes Hx Pneumococcal Vaccination: 12/30/12 Review of Systems - Review of Systems Constitutional: No symptoms reported EENT: No symptoms reported Cardiovascular: No symptoms reported Respiratory: No symptoms reported Gastrointestinal: No symptoms reported Genitourinary: No symptoms reported Female Genitourinary: No symptoms reported Musculoskeletal: See HPI Skin: No symptoms reported Hematologic/Lymphatic: No symptoms reported Neurological/Psychological: See HPI, Numbness, Tingling -: Yes All other systems reviewed and negative Physical Exam - Vital signs Vitals: Temp Pulse Resp BP Pulse Ox 99.6 F 101 H 16 141/92 H 99 05/07/18 15:53 05/07/18 15:53 05/07/18 15:53 05/07/18 15:53 05/07/18 15:53 - Notes Notes: GENERAL: Alert, interacts well. No acute distress. HEAD: Normocephalic, atraumatic. EYES: Pupils equal, round, and reactive to light. Extraocular movements intact. ENT: Oral mucosa moist, tongue midline. NECK: Full range of motion. Supple. Trachea midline. LUNGS: No respiratory distress. EXTREMITIES: Moves all 4 extremities spontaneously. NEUROLOGICAL: Alert and oriented x3. Normal speech. Biceps and patellar DTRs 2+ bilaterally. Negative Chovstek's sign PSYCH: Normal affect, normal mood. SKIN: Warm, dry, normal turgor. No rashes or lesions noted. Course - Re-evaluation Re-evalutation: 05/07/18 18:46 Chemistries show low sodium at 3.4, low calcium at 7.9, low ionized calcium is 0.98, low magnesium at 0.6. EKG is normal despite these electrolyte abnormalities. Patient will be given prescriptions to replete all of these. Instructed to follow-up with primary care physician in 1 week. - Vital Signs Vital signs: Temp Pulse Resp BP Pulse Ox 99.0 F 98 18 148/88 H 98 05/07/18 19:00 05/07/18 19:00 05/07/18 19:00 05/07/18 19:00 05/07/18 19:00 - Laboratory Result Diagrams: 05/07/18 16:39 Laboratory results interpreted by me: 05/07/18 05/07/18 16:39 18:01 Potassium 3.4 L Calcium 7.9 L Ionized Calcium Parveen 0.98 L Magnesium 0.6 L* AST 95 H ALT 55 H Total Protein 6.1 L - EKG Interpretation by Me Additional EKG results interpreted by me: 02/17/19 18:46 EKG shows sinus rhythm at a rate of 97, normal axis, normal intervals, no ST segment elevations or depressions, T wave flattening in lead III which is nonspecific per my interpretation. Discharge - Discharge Clinical Impression: Paresthesias, Hypokalemia, Hypomagnesemia, Hypocalcemia Condition: Stable Disposition: HOME, SELF-CARE Additional Instructions: Your potassium was mildly low, your calcium was moderately low and your magnesium was markedly low. It is very important that you have these rechecked in 1 week. I have given you prescriptions to replace all of them. Please have your levels rechecked in 1 week. Prescriptions: Calcium Carbonate [Calcium] 500 mg PO BID #14 tab.chew Magnesium Oxide [Magnesium] 400 mg PO BID #14 capsule Potassium Chloride [Klor-Con 10 Meq Capsule ER] 10 meq PO DAILY #7 tablet.sa Referrals: LEXA LOVE MD [Primary Care Provider] - Follow up in 1 week Scribe Attestation: 05/07/18 21:03 I personally performed the services described in the documentation, reviewed and edited the documentation which was dictated to the scribe in my presence, and it accurately records my words and actions. I personally performed the services described in the documentation, reviewed and edited the documentation which was dictated to the scribe in my presence, and it accurately records my words and actions.
== END 2018-05-07 19:26 | disposition home or self-care (01) ==
LOC: ER 15:41
DX: R20.2 Paresthesia of skin (principal); E87.6 Hypokalemia; E83.42 Hypomagnesemia; E83.51 Hypocalcemia; F17.210 Nicotine dependence, cigarettes, uncomplicated; I25.10 Atherosclerotic heart disease of native coronary artery without angina pectoris; I10 Essential (primary) hypertension; Z79.899 Other long term (current) drug therapy; R73.03 Prediabetes
CPT/HCPCS: 36415; 80053; 82330; 83735; 93005; 93010; 99284

== ENCOUNTER → 2018-06-09 | Outpatient (CLI) | payer OTHER ==
[2018-06-09 15:31] LABS: ABSOLUTE BASOPHILS # (AUTO) 0.1 10^3/uL (0.0-0.2); ABSOLUTE LYMPHOCYTES (AUTO) 3.6 10^3/uL (0.5-4.7); ABSOLUTE MONOCYTES (AUTO) 0.8 10^3/uL (0.1-1.4); ABSOLUTE NEUT (AUTO) 4.8 10^3/uL (1.7-8.2); BASOPHILS % (AUTO) 1.3 % (0-2); EOSINOPHILS % (AUTO) 0.4 % (0-6); HEMATOCRIT 38.8 % (36.0-47.0); HEMOGLOBIN 13.5 g/dL (12.0-15.5); LYMPHOCYTES % (AUTO) 39.1 % (13-45); MEAN CORPUSCULAR HEMOGLOBIN 30.3 pg (27.0-33.4); MEAN CORPUSCULAR HGB CONC 34.8 g/dL (32.0-36.0); MEAN CORPUSCULAR VOLUME 87 fl (80-97); MONOCYTES % (AUTO) 8.1 % (3-13); PLATELET COUNT 326 10^3/uL (150-450); RED BLOOD COUNT 4.44 10^6/uL (3.72-5.28); RED CELL DISTRIBUTION WIDTH 13.8 % (11.5-14.0); SEGMENTED NEUTROPHILS % (AUTO) 51.1 % (42-78); TOTAL CELLS COUNTED % (AUTO) 100 %; WHITE BLOOD COUNT 9.3 10^3/uL (4.0-10.5)
[2018-06-09 15:53] LABS: ALANINE AMINOTRANSFERASE 24 U/L (9-52); ALBUMIN 3.7 g/dL (3.5-5.0); ALKALINE PHOSPHATASE 55 U/L (38-126); ANION GAP 10 (5-19); ASPARTATE AMINO TRANSFERASE 20 U/L (14-36); BILIRUBIN,DIRECT 0.1 mg/dL (0.0-0.4); BILIRUBIN,TOTAL 0.4 mg/dL (0.2-1.3); BLOOD UREA NITROGEN 20 mg/dL (7-20); CALCIUM 9.6 mg/dL (8.4-10.2); CARBON DIOXIDE 25 mmol/L (22-30); CHLORIDE 106 mmol/L (98-107); GLUCOSE 79 mg/dL (75-110); POTASSIUM 3.5 mmol/L (3.6-5.0); TOTAL PROTEIN 6.7 g/dL (6.3-8.2)
== END ==
LOC: OD 14:43
PROVIDERS: ATTEND Family Medicine
DX: K57.92 Diverticulitis of intestine, part unspecified, without perforation or abscess without bleeding (principal)
CPT/HCPCS: 36415; 80053; 85025

== ENCOUNTER → 2018-06-09 | Outpatient (CLI) | payer OTHER ==
--- NOTE | 2018-06-09 11:19 | RADIOLOGY REPORT (SQ) ---
EXAM DESCRIPTION: CT ABD/PELVIS WITH IV ONLY COMPLETED DATE/TIME: 06/09/2018 10:55 am REASON FOR STUDY: GERNALIZED ABDOMINAL PAIN R10.84 GENERALIZED ABDOMINAL PAIN COMPARISON: None. TECHNIQUE: CT scan of the abdomen and pelvis performed using helical scanning technique with dynamic intravenous contrast injection. No oral contrast. Images reviewed with lung, soft tissue, and bone windows. Reconstructed coronal and sagittal MPR images reviewed. Delayed images for evaluation of the urinary system also acquired. All images stored on PACS. All CT scanners at this facility use dose modulation, iterative reconstruction, and/or weight based d osing when appropriate to reduce radiation dose to as low as reasonably achievable (ALARA). [facility]: Dose Right [facility]: CareDose [facility]: Dose Right [facility]: Teradose 4D [facility]: [employer] CONTRAST TYPE AND DOSE: contrast/concentration: Isovue 350.00 mg/ml; Total Contrast Delivered: 56.0 ml; Total Saline Delivered: 65.0 ml RENAL FUNCTION: Creatinine 0.7 RADIATION DOSE: CT Rad equipment meets quality standard of care and radiation dose reduction techniq ues were employed. CTDIvol: 3.1 - 3.7 mGy. DLP: 286 mGy-cm.. LIMITATIONS: None. FINDINGS: LOWER CHEST: No significant findings. No nodules or infiltrates. LIVER: Normal size. No masses. No dilated ducts. SPLEEN: Normal size. No focal lesions. PANCREAS: No masses. No significant calcifications. No adjacent inflammation or peripancreatic fluid collections. Pancreatic duct not dilated. GALLBLADDER: Surgically absent. ADRENAL GLANDS: No significant masses or asymmetry. RIGHT KIDNEY AND URETER: No solid masses. No significant calcifications. No hydronephrosis or hyd roureter. LEFT KIDNEY AND URETER: No solid masses. No significant calcifications. No hydronephrosis or hydr oureter. AORTA AND VESSELS: No aneurysm. No dissection. Renal arteries, SMA, celiac without stenosis. RETROPERITONEUM: No retroperitoneal adenopathy, hemorrhage or masses. BOWEL AND PERITONEAL CAVITY: There are numerous diverticuli with fairly extensive inflammatory change s in the hepatic flexure. Findings are most consistent with acute right-sided diverticulitis. No fo osiris abscess or free air. APPENDIX: Normal. PELVIS: There are uterine fibroids. No free fluid. ABDOMINAL WALL: No masses. No hernias. BONES: No significant or acute findings. OTHER: No other significant finding. IMPRESSION: Fairly extensive inflammatory changes surrounding the hepatic flexure. Findings are con sistent with right-sided diverticulitis. No focal abscess or free air. Uterine fibroids. TECHNICAL DOCUMENTATION: JOB ID: [id number] Quality ID # [id number]: Final reports with documentation of one or more dose reduction techniques (e.g., Au tomated exposure control, adjustment of the mA and/or kV according to patient size, use of iterative reconstruction technique) 2010 [email or web address]- All Rights Reserved Reading location - IP/workstation name: [email or web address]
== END ==
LOC: RAD 10:18
PROVIDERS: ATTEND Family Medicine
DX: K57.92 Diverticulitis of intestine, part unspecified, without perforation or abscess without bleeding (principal); R10.84 Generalized abdominal pain; D25.9 Leiomyoma of uterus, unspecified
CPT/HCPCS: 74177; 82565

== ENCOUNTER → 2018-06-16 | Outpatient (CLI) | payer OTHER ==
[2018-06-16 15:15] LABS: HEMATOCRIT 37.8 % (36.0-47.0); HEMOGLOBIN 12.8 g/dL (12.0-15.5); MEAN CORPUSCULAR HEMOGLOBIN 30.1 pg (27.0-33.4); MEAN CORPUSCULAR HGB CONC 33.7 g/dL (32.0-36.0); MEAN CORPUSCULAR VOLUME 89 fl (80-97); PLATELET COUNT 308 10^3/uL (150-450); RED BLOOD COUNT 4.23 10^6/uL (3.72-5.28); RED CELL DISTRIBUTION WIDTH 14.5 % (11.5-14.0); WHITE BLOOD COUNT 8.9 10^3/uL (4.0-10.5)
--- NOTE | 2018-06-16 15:18 | RADIOLOGY REPORT (SQ) ---
EXAM DESCRIPTION: CHEST PA/LATERAL COMPLETED DATE/TIME: 06/16/2018 2:46 pm REASON FOR STUDY: COUGH COMPARISON: 12/21/2017 EXAM PARAMETERS: NUMBER OF VIEWS: two views TECHNIQUE: Digital Frontal and Lateral radiographic views of the chest acquired. RADIATION DOSE: NA LIMITATIONS: none FINDINGS: LUNGS AND PLEURA: No opacities, masses or pneumothorax. No pleural effusion. MEDIASTINUM AND HILAR STRUCTURES: No masses or contour abnormalities. HEART AND VASCULAR STRUCTURES: Heart normal size. No evidence for failure. BONES: No acute findings. HARDWARE: None in the chest. OTHER: No other significant finding. IMPRESSION: NO SIGNIFICANT RADIOGRAPHIC FINDING IN THE CHEST. TECHNICAL DOCUMENTATION: JOB ID: [id number] [email or web address]- All Rights Reserved Reading location - IP/workstation name: [email or web address]
[2018-06-16 15:32] LABS: ALANINE AMINOTRANSFERASE 22 U/L (9-52); ALBUMIN 3.5 g/dL (3.5-5.0); ALKALINE PHOSPHATASE 47 U/L (38-126); ANION GAP 5 (5-19); ASPARTATE AMINO TRANSFERASE 20 U/L (14-36); BILIRUBIN,DIRECT 0.2 mg/dL (0.0-0.4); BILIRUBIN,TOTAL 0.4 mg/dL (0.2-1.3); BLOOD UREA NITROGEN 11 mg/dL (7-20); CALCIUM 9.7 mg/dL (8.4-10.2); CARBON DIOXIDE 26 mmol/L (22-30); CHLORIDE 109 mmol/L (98-107); GLUCOSE 132 mg/dL (75-110); POTASSIUM 3.2 mmol/L (3.6-5.0); SODIUM 140.3 mmol/L (137-145); TOTAL PROTEIN 6.3 g/dL (6.3-8.2)
[2018-06-16 15:41] LABS: ABSOLUTE MONOCYTES # (MANUAL) 0.4 10^3/uL (0.1-1.4); ABSOLUTE NEUTROPHILS# (MANUAL) 5.3 10^3/uL (1.7-8.2); BASOPHILS % (MANUAL) 0 % (0-2); EOSINOPHILS % (MANUAL) 2 % (0-6); LYMPHOCYTES % (MANUAL) 33 % (13-45); MONOCYTES % (MANUAL) 5 % (3-13); SEGMENTED NEUTROPHILS % (MAN) 59 % (42-78); TOTAL CELLS COUNTED 100
[2018-06-16 15:43] LABS: PLATELET COMMENT ADEQUATE; RBC MORPHOLOGY COMMENT NORMO-CYTIC/CHROMIC
== END ==
LOC: OD 14:29
PROVIDERS: ATTEND Family Medicine
DX: K57.92 Diverticulitis of intestine, part unspecified, without perforation or abscess without bleeding (principal); R05 Cough
CPT/HCPCS: 36415; 71046; 80053; 85025

== ENCOUNTER 2018-12-10 17:14 | Emergency (ER) | payer OTHER ==
[2018-12-10 17:56] LABS: HEMATOCRIT 37.7 % (36.0-47.0); HEMOGLOBIN 12.9 g/dL (12.0-15.5); MEAN CORPUSCULAR HEMOGLOBIN 29.6 pg (27.0-33.4); MEAN CORPUSCULAR HGB CONC 34.2 g/dL (32.0-36.0); MEAN CORPUSCULAR VOLUME 87 fl (80-97); PLATELET COUNT 278 10^3/uL (150-450); RED BLOOD COUNT 4.35 10^6/uL (3.72-5.28); RED CELL DISTRIBUTION WIDTH 14.7 % (11.5-14.0); WHITE BLOOD COUNT 10.5 10^3/uL (4.0-10.5)
[2018-12-10 18:07] LABS: ALBUMIN 3.8 g/dL (3.5-5.0); ALKALINE PHOSPHATASE 53 U/L (38-126); ANION GAP 8 (5-19); ASPARTATE AMINO TRANSFERASE 28 U/L (14-36); BILIRUBIN,DIRECT 0.1 mg/dL (0.0-0.4); BILIRUBIN,TOTAL 0.4 mg/dL (0.2-1.3); BLOOD UREA NITROGEN 15 mg/dL (7-20); CALCIUM 9.1 mg/dL (8.4-10.2); CARBON DIOXIDE 26 mmol/L (22-30); CHLORIDE 104 mmol/L (98-107); GLUCOSE 80 mg/dL (75-110); POTASSIUM 3.6 mmol/L (3.6-5.0); TOTAL PROTEIN 6.2 g/dL (6.3-8.2)
[2018-12-10] MEDS: MAGNESIUM SULFATE/D5W 1 GM/100 ML RTUPB IV SCH ×2 (19:22→20:16)
--- NOTE | 2018-12-10 20:18 | ER Document Report ---
ED General - General Chief Complaint: Numbness Stated Complaint: TINGLING IN HANDS/FEET Time Seen by Provider: 12/10/18 17:56 Primary Care Provider: LEXA LOVE MD [Primary Care Provider] - Follow up as needed TRAVEL OUTSIDE OF THE [place] IN LAST 30 DAYS: No - HPI Notes: This is a 53-year-old female who presented with a complaint of tingling of her hands and her feet since yesterday. Patient describes intermittent episodes. Patient is that she had this happen in the past before. She denies any weakness. She denies any headache. She denies any focal neurologic complaints. She denies any visual changes or speech changes. She describes her symptoms as moderate. Patient notes that she has had problems with her magnesium in the past before she takes magnesium pills. - Related Data Allergies/Adverse Reactions: No Known Allergies Allergy (Verified 05/07/18 16:13) Past Medical History - Social History Smoking Status: Unknown if Ever Smoked Family History: Reviewed & Not Pertinent Patient has suicidal ideation: No Patient has homicidal ideation: No - Past Medical History Cardiac Medical History: Reports: Hx Coronary Artery Disease - HIGH CHOLESTEROL, Hx Hypercholesterolemia, Hx Hypertension - on meds Denies: Hx Heart Attack Pulmonary Medical History: Denies: Hx Asthma, Hx Bronchitis, Hx COPD, Hx Pneumonia Neurological Medical History: Denies: Hx Cerebrovascular Accident, Hx Seizures Endocrine Medical History: Reports: Hx Diabetes Mellitus Type 2 - Prediabetic Renal/ Medical History: Reports: Hx Ectopic . Denies: Hx Peritoneal Dialysis GI Medical History: Reports: Hx Gastroesophageal Reflux Disease. Denies: Hx Hepatitis, Hx Hiatal Hernia, Hx Ulcer Musculoskeletal Medical History: Reports Hx Arthritis - BACK/BILATERAL SHOULDER AT TIMES Psychiatric Medical History: Reports: Hx Anxiety Infectious Medical History: Denies: Hx Hepatitis Past Surgical History: Reports: Hx Cholecystectomy, Hx Dilation and Curettage, Hx Gynecologic Surgery - Removal of ectopic , Hx Orthopedic Surgery - r shoulder, Hx Tubal Ligation, Other - We will of a groin cyst. Denies: Hx Hysterectomy, Hx Mastectomy, Hx Open Heart Surgery, Hx Pacemaker - Immunizations Hx Diphtheria, Pertussis, Tetanus Vaccination: Yes Hx Pneumococcal Vaccination: 12/30/12 Review of Systems - Review of Systems EENT: No symptoms reported Cardiovascular: denies: Chest pain Gastrointestinal: denies: Abdominal pain, Vomiting, Constipation Musculoskeletal: denies: Muscle pain Neurological/Psychological: Tingling. denies: Weakness, Paralysis, Seizure, Numbness -: Yes All other systems reviewed and negative Physical Exam - Vital signs Vitals: Temp Pulse Resp BP Pulse Ox 99.1 F 97 16 141/70 H 99 12/10/18 17:33 12/10/18 17:33 12/10/18 17:33 12/10/18 17:33 12/10/18 17:33 - General General appearance: Appears well, Alert - HEENT Head: Normocephalic, Atraumatic Eyes: Normal Pupils: PERRL - Respiratory Respiratory status: No respiratory distress Chest status: Nontender Breath sounds: Normal Chest palpation: Normal - Cardiovascular Rhythm: Regular Heart sounds: Normal auscultation Murmur: No - Abdominal Inspection: Normal Distension: No distension Bowel sounds: Normal Tenderness: Nontender Organomegaly: No organomegaly - Extremities General upper extremity: Normal inspection, Nontender, Normal color, Normal ROM, Normal temperature General lower extremity: Normal inspection, Nontender, Normal color, Normal ROM, Normal temperature, Normal weight bearing. No: Lesli's sign - Neurological Neuro grossly intact: Yes Cognition: Normal, Other - There is no motor, sensory or cerebellar deficits. Nonfocal neurologic exam. GCS is 15. NIH stroke score is 0. Orientation: AAOx4 Stas Coma Scale Eye Opening: Spontaneous Stas Coma Scale Verbal: Oriented Wayne Coma Scale Motor: Obeys Commands Stas Coma Scale Total: 15 Speech: Normal Motor strength normal: LUE, RUE, LLE, RLE Sensory: Normal - Psychological Associated symptoms: Normal affect, Normal mood - Skin Skin Temperature: Warm Skin Moisture: Dry Skin Color: Normal Course - Re-evaluation Re-evalutation: 12/10/18 20:20 Differential diagnosis includes electorlyte abnormality vs anxiety. There is no clinical suspicion for CVA with nonfocal neurologic exam. 2020 Patient is doing well. Magnesium infusing. Labs reviewed and discussed. She is stable for discharge after her magnesium infusion. - Vital Signs Vital signs: Temp Pulse Resp BP Pulse Ox 99.1 F 97 16 141/70 H 99 12/10/18 17:33 12/10/18 17:33 12/10/18 17:33 12/10/18 17:33 12/10/18 17:33 - Laboratory Result Diagrams: 12/10/18 17:41 12/10/18 17:41 Laboratory results interpreted by me: 12/10/18 12/10/18 12/10/18 17:41 17:41 17:41 RDW 14.7 H Magnesium 1.2 L* Total Protein 6.2 L Discharge - Discharge Clinical Impression: Hypomagnesemia syndrome, Paresthesias Condition: Good Disposition: HOME, SELF-CARE Instructions: Numbness or Paresthesia ([facility]) Additional Instructions: Take your magnesium pills as prescribed by your doctor. Return if worse or concerns. Referrals: LEXA LOVE MD [Primary Care Provider] - Follow up as needed
[2018-12-10 21:33] VITALS: BP 132/76
== END 2018-12-10 21:32 | disposition home or self-care (01) ==
LOC: ER 17:14
DX: E83.42 Hypomagnesemia (principal); Z79.899 Other long term (current) drug therapy; R20.2 Paresthesia of skin; I25.10 Atherosclerotic heart disease of native coronary artery without angina pectoris; I10 Essential (primary) hypertension
CPT/HCPCS: 99284; 96360; 96361; 36415; 83735; 85027; 80053; J3475

== ENCOUNTER → 2019-03-30 | Outpatient (CLI) | payer OTHER ==
[2019-03-30 17:50] LABS: ABSOLUTE BASOPHILS # (AUTO) 0.1 10^3/uL (0.0-0.2); ABSOLUTE EOSINOPHILS # (AUTO) 0.2 10^3/uL (0.0-0.6); ABSOLUTE LYMPHOCYTES (AUTO) 3.4 10^3/uL (0.5-4.7); ABSOLUTE MONOCYTES (AUTO) 1.1 10^3/uL (0.1-1.4); BASOPHILS % (AUTO) 0.7 % (0-2); EOSINOPHILS % (AUTO) 1.3 % (0-6); HEMATOCRIT 40.7 % (36.0-47.0); HEMOGLOBIN 13.9 g/dL (12.0-15.5); LYMPHOCYTES % (AUTO) 29.1 % (13-45); MEAN CORPUSCULAR HEMOGLOBIN 31.2 pg (27.0-33.4); MEAN CORPUSCULAR HGB CONC 34.3 g/dL (32.0-36.0); MEAN CORPUSCULAR VOLUME 91 fl (80-97); MONOCYTES % (AUTO) 9.2 % (3-13); PLATELET COUNT 269 10^3/uL (150-450); RED BLOOD COUNT 4.46 10^6/uL (3.72-5.28); SEGMENTED NEUTROPHILS % (AUTO) 59.7 % (42-78); TOTAL CELLS COUNTED % (AUTO) 100 %; WHITE BLOOD COUNT 11.8 10^3/uL (4.0-10.5)
[2019-03-30 18:12] LABS: ALBUMIN 4.5 g/dL (3.5-5.0); ALKALINE PHOSPHATASE 54 U/L (38-126); ANION GAP 10 (5-19); ASPARTATE AMINO TRANSFERASE 21 U/L (14-36); BILIRUBIN,DIRECT 0.2 mg/dL (0.0-0.4); BILIRUBIN,TOTAL 0.3 mg/dL (0.2-1.3); BLOOD UREA NITROGEN 13 mg/dL (7-20); CALCIUM 10.1 mg/dL (8.4-10.2); CARBON DIOXIDE 28 mmol/L (22-30); CHLORIDE 102 mmol/L (98-107); GLUCOSE 101 mg/dL (75-110); POTASSIUM 3.8 mmol/L (3.6-5.0); TOTAL PROTEIN 7.4 g/dL (6.3-8.2)
== END ==
LOC: OD 17:00
PROVIDERS: ATTEND Physician Assistant
DX: R10.31 Right lower quadrant pain (principal)
CPT/HCPCS: 36415; 80053; 83690; 85025

== ENCOUNTER 2019-03-31 12:15 | Emergency (ER) | payer OTHER ==
[2019-03-31] MEDS ORDERED: NORMAL SALINE 1000 ML 1,000 ML IV ONE (12:44)
--- NOTE | 2019-03-31 12:45 | ER Document Report ---
ED Medical Screen (RME) - General Chief Complaint: Flank Pain Stated Complaint: RIGHT FLANK PAIN Time Seen by Provider: 03/31/19 12:31 Primary Care Provider: LUZ MARINA ERIC PA [Primary Care Provider] - Follow up as needed TRAVEL OUTSIDE OF THE [place] IN LAST 30 DAYS: No - HPI Notes: 03/31/19 12:44 Patient is a 53-year-old female with a history of hypertension and diverticulosi s who presents complaining of right mid to right lower abdominal pain that is been present for the past couple days and does not radiate. Patient states that she has had diverticulitis on the right side of her abdomen (confirmed on CT scan this past May) and feels that this is similar. She is able to eat and drink without difficulty. She is urinating normally and having normal bowel movements. No fever. I have treated and performed a rapid initial assessment of this patient. A comprehensive ED assessment and evaluation of the patient, analysis of test results and completion of medical decision making process will be conducted by additional ED providers. PHYSICAL EXAMINATION: GENERAL: Well-appearing, well-nourished and in no acute distress. A&Ox4. Answers questions appropriately. Abdomen: Limited exam in triage, but patient is tender to the right lower quadrant. - Related Data Allergies/Adverse Reactions: No Known Allergies Allergy (Verified 05/07/18 16:13) Past Medical History - Past Medical History Cardiac Medical History: Reports: Hx Coronary Artery Disease - HIGH CHOLESTEROL, Hx Hypercholesterolemia, Hx Hypertension - on meds Denies: Hx Heart Attack Pulmonary Medical History: Denies: Hx Asthma, Hx Bronchitis, Hx COPD, Hx Pneumonia Neurological Medical History: Denies: Hx Cerebrovascular Accident, Hx Seizures Endocrine Medical History: Reports: Hx Diabetes Mellitus Type 2 - Prediabetic Renal/ Medical History: Reports: Hx Ectopic . Denies: Hx Peritoneal Dialysis GI Medical History: Reports: Hx Gastroesophageal Reflux Disease. Denies: Hx Hepatitis, Hx Hiatal Hernia, Hx Ulcer Musculoskeltal Medical History: Reports Hx Arthritis - BACK/BILATERAL SHOULDER AT TIMES Psychiatric Medical History: Reports: Hx Anxiety Infectious Medical History: Denies: Hx Hepatitis Past Surgical History: Reports: Hx Cholecystectomy, Hx Dilation and Curettage, Hx Gynecologic Surgery - Removal of ectopic , Hx Orthopedic Surgery - r shoulder, Hx Tubal Ligation, Other - We will of a groin cyst. Denies: Hx Hysterectomy, Hx Mastectomy, Hx Open Heart Surgery, Hx Pacemaker - Immunizations Hx Diphtheria, Pertussis, Tetanus Vaccination: Yes Physical Exam - Vital signs Vitals: Temp Pulse Resp BP Pulse Ox 99.8 F 104 H 18 144/81 H 100 03/31/19 12:30 03/31/19 12:30 03/31/19 12:30 03/31/19 12:30 03/31/19 12:30 Course - Vital Signs Vital signs: Temp Pulse Resp BP Pulse Ox 99.8 F 104 H 18 144/81 H 100 03/31/19 12:30 03/31/19 12:30 03/31/19 12:30 03/31/19 12:30 03/31/19 12:30 Doctor's Discharge - Discharge Referrals: LUZ MARINA ERIC PA [Primary Care Provider] - Follow up as needed
[2019-03-31] MEDS ORDERED: MORPHINE SULFATE 10 MG/ML INJ IV ONE (13:18)
[2019-03-31] MEDS ORDERED: ONDANSETRON HCL INJ/PF 4 MG/2 ML SDV IV ONE (13:24)
[2019-03-31 13:52] LABS: ABSOLUTE BASOPHILS # (AUTO) 0.1 10^3/uL (0.0-0.2); ABSOLUTE EOSINOPHILS # (AUTO) 0.1 10^3/uL (0.0-0.6); ABSOLUTE LYMPHOCYTES (AUTO) 2.9 10^3/uL (0.5-4.7); ABSOLUTE MONOCYTES (AUTO) 1.3 10^3/uL (0.1-1.4); ABSOLUTE NEUT (AUTO) 10.2 10^3/uL (1.7-8.2); BASOPHILS % (AUTO) 0.9 % (0-2); EOSINOPHILS % (AUTO) 0.4 % (0-6); HEMATOCRIT 38.6 % (36.0-47.0); HEMOGLOBIN 13.3 g/dL (12.0-15.5); LYMPHOCYTES % (AUTO) 19.9 % (13-45); MEAN CORPUSCULAR HEMOGLOBIN 31.4 pg (27.0-33.4); MEAN CORPUSCULAR HGB CONC 34.4 g/dL (32.0-36.0); MEAN CORPUSCULAR VOLUME 91 fl (80-97); MONOCYTES % (AUTO) 8.9 % (3-13); PLATELET COUNT 252 10^3/uL (150-450); RED BLOOD COUNT 4.23 10^6/uL (3.72-5.28); SEGMENTED NEUTROPHILS % (AUTO) 69.9 % (42-78); TOTAL CELLS COUNTED % (AUTO) 100 %; WHITE BLOOD COUNT 14.6 10^3/uL (4.0-10.5)
[2019-03-31 14:08] LABS: ALBUMIN 4.2 g/dL (3.5-5.0); ALKALINE PHOSPHATASE 59 U/L (38-126); ANION GAP 12 (5-19); ASPARTATE AMINO TRANSFERASE 20 U/L (14-36); BILIRUBIN,DIRECT 0.1 mg/dL (0.0-0.4); BILIRUBIN,TOTAL 0.8 mg/dL (0.2-1.3); BLOOD UREA NITROGEN 7 mg/dL (7-20); CARBON DIOXIDE 24 mmol/L (22-30); CHLORIDE 101 mmol/L (98-107); GLUCOSE 85 mg/dL (75-110); POTASSIUM 3.7 mmol/L (3.6-5.0)
--- NOTE | 2019-03-31 14:18 | ER Document Report ---
ED General - General Chief Complaint: Flank Pain Stated Complaint: RIGHT FLANK PAIN Time Seen by Provider: 03/31/19 12:31 Primary Care Provider: LUZ MARINA ERIC PA [PHYSICIAN REGULATORY COMPLIANCE SPECIALIST] - Follow up in 3-5 days Notes: 53-year-old female with history of right-sided diverticulitis presents with right lower quadrant pain starting few days ago. Patient describes it as a constant with intermittent cramping. Patient has associated nausea without vomiting. Patient denies any diarrhea, constipation, fever, chills, urinary symptoms. Patient states she does have hematuria that has been worked up by urology and was told to only get concerned if she could see the blood. Patient states this feels similar to right-sided diverticulitis which was diagnosed on CT in May of this past year. Patient denies anything making it worse, anything making it better. TRAVEL OUTSIDE OF THE [place] IN LAST 30 DAYS: No - Related Data Allergies/Adverse Reactions: No Known Allergies Allergy (Verified 05/07/18 16:13) Home Medications: Metoprolol, Lipitor, Telmisartan Past Medical History - Social History Smoking Status: Current Every Day Smoker Family History: Reviewed & Not Pertinent Patient has suicidal ideation: No Patient has homicidal ideation: No - Past Medical History Cardiac Medical History: Reports: Hx Coronary Artery Disease - HIGH CHOLESTEROL, Hx Hypercholesterolemia, Hx Hypertension - on meds Denies: Hx Heart Attack Pulmonary Medical History: Denies: Hx Asthma, Hx Bronchitis, Hx COPD, Hx Pneumonia Neurological Medical History: Denies: Hx Cerebrovascular Accident, Hx Seizures Endocrine Medical History: Reports: Hx Diabetes Mellitus Type 2 - Prediabetic Renal/ Medical History: Reports: Hx Ectopic . Denies: Hx Peritoneal Dialysis GI Medical History: Reports: Hx Gastroesophageal Reflux Disease. Denies: Hx Hepatitis, Hx Hiatal Hernia, Hx Ulcer Musculoskeletal Medical History: Reports Hx Arthritis - BACK/BILATERAL SHOULDER AT TIMES Psychiatric Medical History: Reports: Hx Anxiety Infectious Medical History: Denies: Hx Hepatitis Past Surgical History: Reports: Hx Cholecystectomy, Hx Dilation and Curettage, Hx Gynecologic Surgery - Removal of ectopic , Hx Orthopedic Surgery - r shoulder, Hx Tubal Ligation, Other - We will of a groin cyst. Denies: Hx Hysterectomy, Hx Mastectomy, Hx Open Heart Surgery, Hx Pacemaker - Immunizations Hx Diphtheria, Pertussis, Tetanus Vaccination: Yes Hx Pneumococcal Vaccination: 12/30/12 Review of Systems - Review of Systems Notes: Constitutional: Negative for fever. HENT: Negative for sore throat. Eyes: Negative for visual changes. Cardiovascular: Negative for chest pain. Respiratory: Negative for shortness of breath. Gastrointestinal: Positive for abdominal pain and nausea. Negative for vomiting or diarrhea. Genitourinary: Negative for dysuria. Musculoskeletal: Negative for back pain. Skin: Negative for rash. Neurological: Negative for headaches, weakness or numbness. 10 point ROS negative except as marked above and in HPI. Physical Exam - Vital signs Vitals: Temp Pulse Resp BP Pulse Ox 99.8 F 104 H 18 144/81 H 100 03/31/19 12:30 03/31/19 12:30 03/31/19 12:30 03/31/19 12:30 03/31/19 12:30 - Notes Notes: GENERAL: Well-appearing, well-nourished and in no acute distress. HEAD: Atraumatic, normocephalic. EYES: Extraocular movements intact, sclera anicteric, conjunctiva are normal. NECK: Normal range of motion, supple without lymphadenopathy or JVD. LUNGS: Breath sounds clear to auscultation bilaterally and equal. No wheezes rales or rhonchi. HEART: Regular rate and rhythm without murmurs, rubs or gallops. ABDOMEN: Soft, tenderness to right lower quadrant. No guarding, no rebound. No masses appreciated. EXTREMITIES: Normal range of motion, no pitting or edema. No clubbing or cyanosis. NEUROLOGICAL: Cranial nerves II through XII grossly intact. Normal speech, normal gait. PSYCH: Normal mood, normal affect. SKIN: Warm, Dry, normal turgor, no rashes or lesions noted. Course - Re-evaluation Re-evalutation: 03/31/19 53-year-old nontoxic, well-appearing female presents with right lower quadrant pain that is been past few days. Associated nausea. Patient is afebrile and mildly tachycardic. Abdomen soft tenderness to right lower quadrant. Patient has a history of right-sided diverticulitis that feels similar to this. Work-up initiated. 03/31/19 14:18 mild leukocytosis otherwise labs are reassuring. 03/31/19 15:06 Radiologist called. Right sided diverticulitis. 03/31/19 15:13 Pt has prescription for Cipro and Flagyl given to her by her PCP. Recommended pt take and finish these. DIscussed all results with pt. Strict return precautions given. Pt voices understanding and agrees with plan of care. - Vital Signs Vital signs: Temp Pulse Resp BP Pulse Ox 99.8 F 104 H 18 144/81 H 100 03/31/19 12:30 03/31/19 12:30 03/31/19 12:30 03/31/19 12:30 03/31/19 12:30 - Laboratory Result Diagrams: 03/31/19 13:25 03/31/19 13:25 Laboratory results interpreted by me: 03/31/19 03/31/19 03/31/19 13:25 13:25 14:00 WBC 14.6 H Absolute Neuts (auto) 10.2 H Sodium 136.6 L Urine Glucose (UA) >=500 H Urine Blood SMALL H Leukocyte Esterase Rfl TRACE H Discharge - Discharge Clinical Impression: Diverticulitis Condition: Stable Disposition: HOME, SELF-CARE Instructions: Diverticulitis ([facility]) Additional Instructions: Your CT showed right-sided diverticulitis. Please take antibiotic as prescribed and finish all doses even if you feel better. Please take Bentyl as prescribed for abdominal pain. Please take Zofran as needed for nausea. Please follow-up with your primary care doctor in 3 to 5 days. Return to ER immediately if you start having any worsening symptoms, including worsening dental pain, fever, vomiting not controlled by medication, diarrhea, constipation, chest pain, shortness of breath, or any other symptoms that are concerning to you. Prescriptions: Ondansetron [Zofran Odt 4 mg Tablet] 4 mg PO Q4HP PRN #30 tab.rapdis PRN Reason: Amox Tr/Potassium Clavulanate [Augmentin 875-125 Tablet] 1 tab PO BID 10 Days #20 tablet Dicyclomine HCl [Bentyl 20 mg Tablet] 20 mg PO QID #40 tablet Forms: Return to Work Referrals: LUZ MARINA ERIC PA [PHYSICIAN REGULATORY COMPLIANCE SPECIALIST] - Follow up in 3-5 days
[2019-03-31 14:35] LABS: APPEARANCE,URINE CLEAR; BILIRUBIN,URINE NEGATIVE (NEGATIVE); COLOR,URINE YELLOW; GLUCOSE, URINE >=500 mg/dL (NEGATIVE); KETONES,URINE NEGATIVE (NEGATIVE); PROTEIN,URINE NEGATIVE (NEGATIVE); UROBILINOGEN,URINE NEGATIVE mg/dL (<2.0)
--- NOTE | 2019-03-31 15:11 | RADIOLOGY REPORT (SQ) ---
EXAM DESCRIPTION: CT ABD/PELVIS WITH IV ONLY COMPLETED DATE/TIME: 03/31/2019 1:42 pm REASON FOR STUDY: Rt mid to lower abd pain, h/o divert. on rt side COMPARISON: CT abdomen and pelvis 06/09/2018. TECHNIQUE: CT scan of the abdomen and pelvis performed using helical scanning technique with dynamic intravenous contrast injection. No oral contrast. Images reviewed with lung, soft tissue, and bone windows. Reconstructed coronal and sagittal MPR images reviewed. Delayed images for evaluation of the urinary system also acquired. All images stored on PACS. All CT scanners at this facility use dose modulation, iterative reconstruction, and/or weight based d osing when appropriate to reduce radiation dose to as low as reasonably achievable (ALARA). [facility]: Dose Right [facility]: CareDose [facility]: Dose Right [facility]: Teradose 4D [facility]: [employer] CONTRAST TYPE AND DOSE: contrast/concentration: Isovue 350.00 mg/ml; Total Contrast Delivered: 51.0 ml; Total Saline Delivered: 65.0 ml RENAL FUNCTION: GFR > 60. RADIATION DOSE: CT Rad equipment meets quality standard of care and radiation dose reduction techniq ues were employed. CTDIvol: 4.8 mGy. DLP: 479 mGy-cm.. LIMITATIONS: None. FINDINGS: LOWER CHEST: A 3 mm subpleural nodule in the right lower lobe is stable (image 7). Mild d ependent atelectasis. No focal consolidation or pleural effusion. LIVER: The liver has normal size and contour. There are multiple too small to characterize circumscr ibed hypodense lesions within the hepatic parenchyma, stable from prior study, probably representing benign hemangiomas or cysts. These are technically indeterminate. Hepatic and portal veins are freeman nt. Prominence of the intrahepatic and extrahepatic biliary ducts similar in appearance to previous examination, probably post cholecystectomy reservoir effect. No definite choledocholithiasis. SPLEEN: Normal size. No focal lesions. PANCREAS: No masses. No significant calcifications. No adjacent inflammation or peripancreatic fluid collections. Pancreatic duct not dilated. GALLBLADDER: Post cholecystectomy. ADRENAL GLANDS: No significant masses or asymmetry. RIGHT KIDNEY AND URETER: Right renal cortical scarring is stable. No focal enhancing mass. No sign ificant calcifications. No hydronephrosis or hydroureter. LEFT KIDNEY AND URETER: No solid masses. No significant calcifications. No hydronephrosis or hydr oureter. AORTA AND VESSELS: No aneurysm. No dissection. Renal arteries, SMA, celiac without stenosis. RETROPERITONEUM: No retroperitoneal adenopathy, hemorrhage or masses. BOWEL AND PERITONEAL CAVITY: There is acute inflammatory change and bowel wall thickening involving t he ascending colon at the cecum, with underlying multiple colonic diverticula, consistent with divert iculitis. Surrounding inflammatory change and small amount of layering fluid in the right pericolic gutter. No evidence of perforation or peritoneal abscess. There is no bowel obstruction. No bowel wall thickening. APPENDIX: The appendix is upper limits of normal in caliber measuring 8 mm, however this is stable in appearance from previous examination. There is no surrounding periappendiceal inflammatory change. PELVIS: No mass. No free fluid. Normal bladder. ABDOMINAL WALL: No masses. No hernias. BONES: No significant or acute findings. OTHER: No other significant finding. IMPRESSION: 1. Acute diverticulitis involving the cecum. Associated inflammatory change and small amount of asci gabino. No perforation or peritoneal abscess. 2. The appendix is upper limits of normal in size, however has a gas-filled lumen and similar appeara nce to the previous examination. No periappendiceal inflammatory change. 3. Right renal cortical scarring, stable. 4. Multiple technically too small to characterize hepatic lesions are stable. If further characteriz ation is warranted, evaluation with nonemergent hepatic protocol MRI may provide additional informati on. COMMENT: Findings discussed with supervising physician for TANGELA Jones on 03/31/2019 at 1403 hours. TECHNICAL DOCUMENTATION: JOB ID: [id number] Quality ID # [id number]: Final reports with documentation of one or more dose reduction techniques (e.g., Au tomated exposure control, adjustment of the mA and/or kV according to patient size, use of iterative reconstruction technique) 2010 [employer]- All Rights Reserved Reading location - IP/workstation name: [email or web address]
[2019-03-31 15:42] VITALS: BP 99/58
== END 2019-03-31 15:40 | disposition home or self-care (01) ==
LOC: ER 12:15
DX: K57.92 Diverticulitis of intestine, part unspecified, without perforation or abscess without bleeding (principal); R10.9 Unspecified abdominal pain; R10.31 Right lower quadrant pain; R11.0 Nausea; F17.200 Nicotine dependence, unspecified, uncomplicated; I25.10 Atherosclerotic heart disease of native coronary artery without angina pectoris; E11.9 Type 2 diabetes mellitus without complications
CPT/HCPCS: 99284; 96361; 96374; 96375; 36415; 87086; 85025; 80053; 81001; 74177; J2270; J2405; J7030

== ENCOUNTER → 2019-06-12 | Outpatient (CLI) | payer OTHER ==
--- NOTE | 2019-06-12 14:32 | RADIOLOGY REPORT (SQ) ---
EXAM DESCRIPTION: CT LUNG CANCER SCREENING COMPLETED DATE/TIME: 06/12/2019 1:36 pm REASON FOR STUDY: (Z87.891)PERSONAL HISTORY OF NICOTINE DEPENDENCE Z87.891 PERSONAL HISTORY OF PRUDENCE CRISTIAN DEPENDENCE Has the patient had a Chest CT scan within the past year? Y Was the patient offered tobacco cessation counseling? Y Was the patient engaged in shared decision making for this test? Y Does the patient have signs or symptoms of Lung Cancer? N Is the patient a smoker? Y How many pack years? 30 How many years since quitting smoking? 0 Patients age: 53 COMPARISON: 03/29/2017 TECHNIQUE: Low Dose CT scan performed of the chest without intravenous contrast for purposes of scre ening for lung cancer. Images reviewed with lung, soft tissue and bone windows. Reconstructed coron al and sagittal MPR images reviewed. All images stored on PACS. All CT scanners at this facility use dose modulation, iterative reconstruction, and/or weight based d osing when appropriate to reduce radiation dose to as low as reasonably achievable (ALARA). [facility]: Dose Right [facility]: CareDose [facility]: Dose Right [facility]: Teradose 4D [facility]: [employer] RADIATION DOSE: CT Rad equipment meets quality standard of care and radiation dose reduction techniq ues were employed. CTDIvol: 1.9 mGy. DLP: 72 mGy-cm. mGy. . LIMITATIONS: No technical limitations. FINDINGS: LUNG NODULES: There are several less than 6 mm part solid nodules, the largest 5 mm middl e lobe image 228 of series 2. All are stable from the prior. No new nodules. REMAINING LUNGS AND PLEURA: No pleural effusions or calcifications. No pneumothorax. Mild centr ilobular emphysema. HILAR AND MEDIASTINAL STRUCTURES: No identified masses. No abnormal nodes. HEART AND VASCULAR STRUCTURES: No aortic aneurysm. No pericardial effusion. No cardiac devices. CORONARY ARTERY CALCIFICATIONS: No significant calcifications. UPPER ABDOMEN: No significant findings. THYROID AND OTHER SOFT TISSUES: No masses. No adenopathy. BONES: No significant finding. OTHER: No other significant findings. IMPRESSION: BENIGN FINDINGS IN THE LUNGS. OTHER FINDINGS ABOVE. LUNGRADS: LUNGRADS: 2 BENIGN APPEARANCE OR BEHAVIOR. NODULES WITH A VERY LOW LIKELIHOOD OF BECOMIN G A CLINICALLY ACTIVE CANCER DUE TO SIZE OR LACK OF GROWTH. MODIFIER: NONE. RECOMMENDATION: Continue annual screening with LDCT in 12 months. COMMENT: CRITERIA: Solid nodule(s): < 6 mm; new < 4 mm. Part solid nodule(s): < 6 mm total diameter on baseline screening. Non solid nodule(s) (GGN): < 20 mm OR ? 20 and unchanged or slowly growing. Category 3 or 4 nodules unchanged for ? 3 months. TECHNICAL DOCUMENTATION: JOB ID: [id number] Quality ID # [id number]: Final reports with documentation of one or more dose reduction techniques (e.g., Au tomated exposure control, adjustment of the mA and/or kV according to patient size, use of iterative reconstruction technique) 2010 [facility] Reading location - IP/workstation name: [email or web address]
== END ==
LOC: RAD 13:23
PROVIDERS: ATTEND Physician Assistant
DX: Z87.891 Personal history of nicotine dependence (principal)
CPT/HCPCS: G0297

== ENCOUNTER → 2019-06-20 | Outpatient (CLI) | payer OTHER ==
--- NOTE | 2019-06-20 10:18 | WOMENS IMAGING REPORT ---
EXAM DESCRIPTION: BILAT SCREENING MAMMO W/CAD IMAGES COMPLETED DATE/TIME: 06/20/2019 9:58 am REASON FOR STUDY: Z12.31 SCREENING MAMMO Z12.31 ENCNTR SCREEN MAMMOGRAM FOR MALIGNANT NEOPLASM OF B RE COMPARISON: Multiple since 2009 EXAM PARAMETERS: Standard craniocaudal and mediolateral oblique views of each breast recorded using digital acquisition. Read with the assistance of CAD. .[facility] - [employer] Environmental Engineering Aide Version 9.2 LIMITATIONS: None. FINDINGS: No suspicious masses, suspicious calcifications or architectural distortion. No areas of c oncern. IMPRESSION: NEGATIVE MAMMOGRAM. BIRADS 1 BREAST DENSITY: c. The breasts are heterogeneously dense, which may obscure small masses. BIRAD: ASSESSMENT: 1 NEGATIVE RECOMMENDATION: ROUTINE SCREENING COMMENT: The patient has been notified of the results by letter per MQSA requirements. Additional no tification policies are in place for contacting patient with suspicious or incomplete findings. Quality ID #[id number]: The [employer] recommends an annual screening mammogram for women aged 40 years or over. This facility utilizes a reminder system to ensure that all patients receive reminder letters, and/or direct phone calls for appointments. This includes reminders for routine scr eening mammograms, diagnostic mammograms, or other Breast Imaging Interventions when appropriate. Th is patient will be placed in the appropriate reminder system. TECHNICAL DOCUMENTATION: FINDING NUMBER: (1) ASSESSMENT: (1) JOB ID: [id number] 2010 [employer]- All Rights Reserved Reading location - IP/workstation name: [id number]
== END ==
LOC: WI 09:40
PROVIDERS: ATTEND Physician Assistant
DX: Z12.31 Encounter for screening mammogram for malignant neoplasm of breast (principal)
CPT/HCPCS: 77067

== ENCOUNTER → 2020-01-10 | Outpatient (CLI) | payer OTHER ==
[2020-01-10 17:48] LABS: ABSOLUTE BASOPHILS # (AUTO) 0.1 10^3/uL (0.0-0.2); ABSOLUTE EOSINOPHILS # (AUTO) 0.2 10^3/uL (0.0-0.6); ABSOLUTE LYMPHOCYTES (AUTO) 3.4 10^3/uL (0.5-4.7); ABSOLUTE MONOCYTES (AUTO) 0.8 10^3/uL (0.1-1.4); ABSOLUTE NEUT (AUTO) 3.6 10^3/uL (1.7-8.2); BASOPHILS % (AUTO) 1.1 % (0-2); HEMATOCRIT 39.3 % (36.0-47.0); HEMOGLOBIN 13.3 g/dL (12.0-15.5); LYMPHOCYTES % (AUTO) 41.7 % (13-45); MEAN CORPUSCULAR HEMOGLOBIN 30.6 pg (27.0-33.4); MEAN CORPUSCULAR HGB CONC 33.9 g/dL (32.0-36.0); MEAN CORPUSCULAR VOLUME 90 fl (80-97); MONOCYTES % (AUTO) 10.2 % (3-13); PLATELET COUNT 253 10^3/uL (150-450); RED BLOOD COUNT 4.35 10^6/uL (3.72-5.28); RED CELL DISTRIBUTION WIDTH 13.6 % (11.5-14.0); TOTAL CELLS COUNTED % (AUTO) 100 %
[2020-01-10 18:12] LABS: ALBUMIN 4.3 g/dL (3.5-5.0); ALKALINE PHOSPHATASE 72 U/L (38-126); ANION GAP 8 (5-19); ASPARTATE AMINO TRANSFERASE 19 U/L (14-36); BILIRUBIN,DIRECT 0.3 mg/dL (0.0-0.4); BILIRUBIN,TOTAL 0.3 mg/dL (0.2-1.3); BLOOD UREA NITROGEN 8 mg/dL (7-20); CALCIUM 9.8 mg/dL (8.4-10.2); CARBON DIOXIDE 27 mmol/L (22-30); CHLORIDE 102 mmol/L (98-107); GLUCOSE 78 mg/dL (75-110); POTASSIUM 3.8 mmol/L (3.6-5.0); TOTAL PROTEIN 7.1 g/dL (6.3-8.2)
== END ==
LOC: OD 16:44
PROVIDERS: ATTEND Family Medicine
DX: R10.31 Right lower quadrant pain (principal)
CPT/HCPCS: 36415; 80053; 83690; 85025